=== PATIENT | female | born 1950 | race Caucasian/White ===

== ENCOUNTER 2016-06-19 20:32 | Inpatient (IN) | payer MEDICARE, MEDICAID ==
[~2016-06-19] VITALS: Ht 152.4 cm; Wt 92.6 kg
--- NOTE | ~2016-06-19 | EKG ---
[place], [place] ELECTROCARDIOGRAM REPORT NAME: MARY AL UNIT #: [id number] ROOM: 404 DOCTOR: POWER WRAY MD BIRTHDATE: [birth year] DOS: 06/22/2016 TIME: 21:16:21. RATE AND RHYTHM: Normal sinus rhythm at 77 beats per minute. OR interval 168 milliseconds, QRS duration 112 milliseconds, corrected QT interval 393 milliseconds, QRS axis is 264. IMPRESSION: 1. Normal sinus rhythm. 2. Low voltage in the precordial leads. 3. T-wave flattening noted in V4, V5, and T-wave changes noted in V1, V2 and also T-wave changes noted in I, aVL, rule out lateral ischemia. POWER WRAY MD CM:EKGRPT:ELECTROCARDIOGRAM REPORT [id number] POWER WRAY MD
--- NOTE | ~2016-06-19 | PR ---
[place], [place] PROGRESS NOTE [id number] UN[facility] #: [id number] ROOM: 404 DOCTOR: BLAINE NGUYEN MD BIRTHDATE: [birth year] DOS: 06/21/2016 SUBJECTIVE: The patient was seen at her bedside today, 06/21/2016, for followup of her presentation with syncope. She is a 65-year-old woman with a history of hypertension, hypothyroidism and a remote stroke who had syncope prompting her current admission. She had a short prodrome of dizziness and then fell. She denied any shortness of breath, palpitations or chest pain prior to falling. Since she has been in the hospital, orthostatic vital signs have been normal and she has not had any significant arrhythmias on the monitor. Serial cardiac biomarkers were normal. An echocardiogram was technically difficult, but did show normal left ventricular function and no significant valve abnormalities. PHYSICAL EXAMINATION: VITAL SIGNS: Today, her pulse is 73 and regular, blood pressure is 123/73. She is afebrile. She weighs 92.6 kg with a body mass index of 39.9. HEENT: Normocephalic, atraumatic. Extraocular muscles are intact. Sclerae are clear. Pupils are round and react to light. The oral mucosa is moist. Tongue is midline. NECK: Supple. She has no jugular distention. Carotids are full without bruits. She has no neck or supraclavicular masses, no thyromegaly. LUNGS: Respirations are unlabored. Her chest is clear to auscultation and percussion. HEART: Has a regular rhythm with a soft S4 gallop, but no S3 or significant murmur. The PMI is not displaced. ABDOMEN: Obese, but otherwise benign. EXTREMITIES: Showed no edema. IMPRESSION: 1. Syncope. This was a somewhat atypical episodes since the patient apparently was unconscious for quite some time. This makes a vasovagal or arrhythmic event less likely. 2. Type 2 diabetes mellitus. 3. Familial tremor. 4. Hypothyroidism. 5. Essential hypertension. PLAN: No other cardiac workup is planned at this time. If symptoms persist, then further evaluation with extended monitoring, tilt-table testing, etc., would be appropriate. We will continue to observe her with her primary physicians and we thank Dr. Keys for asking our advice regarding her care. [place], [place] PROGRESS NOTE NAME: MARY AL UNIT #: [id number] ROOM: 404 DOCTOR: BLAINE NGUYEN MD BIRTHDATE: [birth year] BLAINE NGUYEN MD CM:PNTRANS 1753 1800 BLAINE NGUYEN MD 06/22/16 1800 interface
--- NOTE | ~2016-06-19 | CON ---
[place], [place] REPORT OF CONSULTATION NAME: MARY AL UNIT #: [id number] ROOM: 404 DOCTOR: PÉREZ RAMOS ED.D (PRESTON) BIRTHDATE: [birth year] DOS: 06/21/2016 HISTORY OF PRESENT ILLNESS: The patient is a 65-year-old female referred by Dr. Wray for psychological evaluation regarding her anxiety and depression. At the present time, this patient is on the 4th floor at [facility]. The patient is , and has one daughter and one stepdaughter and several grandchildren. Her was present during part of the interview. 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 Her family physician is Dr. Wray, and her medical history is pertinent for syncope, anxiety, benign essential tremor, chronic kidney disease, GERD, hypothyroidism, hypertension, PTSD, and major depressive disorder. Her medications include Klonopin, gabapentin, Synthroid, Prilosec, Paxil, and Risperdal. She was treated on the Inpatient Behavioral Health Unit here at [facility]. She denies any significant substance abuse issues, although she does have a history of alcohol abuse and a long family history of alcohol abuse. She has not had anything to drink for many years. This patient was awake, alert, and oriented in all 3 spheres, but was quite depressed. She denies any suicidal ideation or homicidal thoughts, and does not appear to have any active hallucinations. She did follow with Dr. Levi here in [place], and was treated by Beto Welch at the counseling center here in [place] [facility] at one time. I did refer her to the [facility] here in [place] for outpatient counseling, but she did not followup and I strongly suggested she follow up in the immediate future. She worries about running up bills and I explained that she would probably not have any co-pay if she went to the [facility] office. She states that she suffers from PTSD due to the fact that her family had a long history of alcoholism and aggressive behavior. DIAGNOSES: 1. Major depressive disorder, recurrent. 2. Posttraumatic stress disorder. RECOMMENDATIONS: 1. The patient should continue her psychotropic medications as prescribed by Dr. Wray. 2. The patient should follow up at [facility] for outpatient counseling. Thank you very much for this consult. [place], [place] REPORT OF CONSULTATION NAME: MARY AL UNIT #: [id number] ROOM: 404 DOCTOR: PÉREZ RAMOS ED.D (PRESTON) BIRTHDATE: [birth year] PÉREZ RAMOS ED.D CM:CONSTR:REPORT OF CONSULTATION 1040 06/22/16 0135 interface POWER WRAY MD
[2016-06-19 20:32] VITALS: BP 145/51
[~2016-06-19 20:32] MED LIST: AMOXIL500 MG PO; ASPI-COR81 M1 PO; ASPIRIN ENTERIC81 M1 PO; ASPIRIN81 MG PO; BACTRIM DS 8001 TA1 PO; BRIN20TA PO; CLINDAMYCIN HC300 MG PO; CLONAZEPAM1 MG PO; CLONAZEPAM2 MG PO; CRESTOR10 M1 PO; DIABETIC; EC NAPROSYN500 MG PO; GABAPENTIN400 MG PO; HYDROCODONE BIT1 T11 PO; INVOKANA PO; KLONOPIN0.5 MG PO; LEVEMIR10 ML SC; LEVEMIR100 U/ML SC; LEVOTHYROXIN0.125 MG PO; LEVOTHYROXINE0.1 M1 PO; LOMOTIL 0.025 M1 TA1 PO; MELOXICAM1 POW; MELOXICAM15 MG PO; MICONAZOLE2% T; MIRTAZAPINE15 M2 PO; Mysoline50 MG PO; NORCO 325 MG-51 TAB PO; PAROXETINE10 MG PO; PAROXETINE20 MG PO; PAXIL20 M1 PO; PRAVASTATIN SOD20 MG PO; PREDNICOT20 MG PO; PRESERVISION1 SGL PO; PRILOSEC20 MG PO; RISPERDAL0.25 MG PO; RISPERDAL2 M1 PO; SODIUM POL; SYNTHROID,LEV150 MCG PO; Synthroid,Levo75 MCG PO; TRAMADOL50 MG PO; TYLENOL W/CODEI1 TA2 PO; TYLENOL500 MG PO; VICODIN 5/500 505 MG; VICODIN 5/500 505 MG PO; VICTOZA6 MG/ML SC; WELCHOL625 MG PO; ZOFRAN ODT4 MG SL; Zofran4 MG PO
[2016-06-19] MEDS ORDERED: KLONOPIN2 M1 PO (20:39)
[2016-06-19 21:13] LABS: BASO # 0.1 10*3/uL (0.0-0.1); BASO % 0.7 % (0.0-1.0); EOS # 0.2 10*3/uL (0.0-0.4); EOS % 2.3 % (1.0-4.0); HEMATOCRIT 44.5 % (37.0-47.0); HEMOGLOBIN 14.8 g/dl (12.0-16.0); LYMPH # 2.5 10*3/uL (1.3-4.4); LYMPH % 28.8 % (27.0-41.0); MEAN CELL VOLUME 89.2 fl (81.0-99.0); MEAN CORPUSCULAR HGB 29.7 pg (27.0-31.0); MEAN CORPUSCULAR HGB CONC 33.3 g/dl (33.0-37.0); MEAN PLATELET VOLUME 10.9 fl (9.6-12.3); MONO # 0.5 10*3/uL (0.1-1.0); NEUT # 5.4 10*3/uL (2.3-7.9); PLATELET COUNT AUTOMATED 145 10*3/uL (130-400); RED BLOOD COUNT 4.99 10*6/uL (4.10-5.10); RED CELL DISTRI WIDTH 13.2 % (0-14.5); WHITE BLOOD COUNT 8.8 10*3/uL (4.8-10.8)
[2016-06-19 21:15] VITALS: BP 138/58
[2016-06-19 21:33] LABS: ALBUMIN 3.5 gm/dl (3.1-4.5); BILIRUBIN, TOTAL 0.6 mg/dl (0.2-1.0); POTASSIUM 3.9 mmol/L (3.5-5.1); TOTAL PROTEIN 7.3 gm/dL (6.4-8.2)
[2016-06-19 21:44] VITALS: BP 159/62
[2016-06-19 22:54] VITALS: BP 134/67
[2016-06-19 23:07] VITALS: BP 129/68
[2016-06-20 01:15] VITALS: BP 148/73
[2016-06-20 06:43] LABS: BASO # 0.1 10*3/uL (0.0-0.1); BASO % 0.7 % (0.0-1.0); EOS # 0.2 10*3/uL (0.0-0.4); EOS % 2.7 % (1.0-4.0); HEMATOCRIT 40.3 % (37.0-47.0); HEMOGLOBIN 13.5 g/dl (12.0-16.0); LYMPH # 2.5 10*3/uL (1.3-4.4); LYMPH % 29.9 % (27.0-41.0); MEAN CELL VOLUME 88.8 fl (81.0-99.0); MEAN CORPUSCULAR HGB 29.7 pg (27.0-31.0); MEAN CORPUSCULAR HGB CONC 33.5 g/dl (33.0-37.0); MEAN PLATELET VOLUME 11.2 fl (9.6-12.3); MONO # 0.6 10*3/uL (0.1-1.0); MONO % 7.3 % (3.0-9.0); PLATELET COUNT AUTOMATED 129 10*3/uL (130-400); RED BLOOD COUNT 4.54 10*6/uL (4.10-5.10); WHITE BLOOD COUNT 8.4 10*3/uL (4.8-10.8)
[2016-06-20 06:54] LABS: CPK 31 U/L (26-192)
[2016-06-20 06:56] LABS: CKMB < 0.5 ng/ml (0.5-3.6)
[2016-06-20 06:59] LABS: HEMOGLOBIN A1c 12.1 % (4.8-5.6)
[2016-06-20 07:28] LABS: FOLIC ACID 8.13 ng/mL (>5.38)
[2016-06-20 07:30] LABS: PROTHROMBIN TIME 10.8 SECONDS (9.0-12.4)
[2016-06-20 07:39] LABS: ALBUMIN 3.1 gm/dl (3.1-4.5); BILIRUBIN, TOTAL 0.6 mg/dl (0.2-1.0); POTASSIUM 3.7 mmol/L (3.5-5.1); TOTAL PROTEIN 6.2 gm/dL (6.4-8.2)
[2016-06-20 07:51] LABS: FREE T4 1.08 ng/dl (0.76-1.46); MAGNESIUM 1.9 mg/dL (1.5-2.1); THYROID STIM HORMONE (HS) 14.1 uIU/ml (0.358-4.75)
[2016-06-20 08:00] VITALS: BP 106/52
[2016-06-20] MEDS ORDERED: TOUJEO300 U/ML SC (09:18)
[2016-06-20] MEDS ORDERED: RISPERDAL0.5 MG PO (09:19)
[2016-06-20 12:00] VITALS: BP 122/86
[2016-06-20 12:21] LABS: CKMB 0.5 ng/ml (0.5-3.6)
[2016-06-20 16:00] VITALS: BP 126/67
[2016-06-20 18:43] LABS: CKMB 0.6 ng/ml (0.5-3.6)
[2016-06-20 20:00] VITALS: BP 144/86
[2016-06-21] VITALS: BP 143/68
[2016-06-21 08:00] VITALS: BP 150/80; BP 151/81
[2016-06-21 12:00] VITALS: BP 146/79
[2016-06-21 16:00] VITALS: BP 123/73
[2016-06-21 20:00] VITALS: BP 138/64
[2016-06-22] VITALS: BP 154/55
[2016-06-22 08:00] VITALS: BP 149/69
[2016-06-22 12:40] VITALS: BP 164/75
== END 2016-06-22 14:27 | disposition home or self-care (01) | DRG 69 ==
LOC: ED 20:32 → 4E 23:32 → EDHOLD 23:32 → 4E 23:47
PROVIDERS: Emergency Medicine Emergency Medical Services; Internal Medicine
DX: G45.9 Transient cerebral ischemic attack, unspecified (principal); N18.3 Chronic kidney disease, stage 3 (moderate); E11.39 Type 2 diabetes mellitus with other diabetic ophthalmic complication; F33.9 Major depressive disorder, recurrent, unspecified; R55 Syncope and collapse; I12.9 Hypertensive chronic kidney disease with stage 1 through stage 4 chronic kidney disease, or unspecified chronic kidney disease; F41.9 Anxiety disorder, unspecified; K21.9 Gastro-esophageal reflux disease without esophagitis; E03.9 Hypothyroidism, unspecified; H35.30 Unspecified macular degeneration; M79.89 Other specified soft tissue disorders; F43.10 Post-traumatic stress disorder, unspecified; G25.0 Essential tremor; Z87.442 Personal history of urinary calculi; Z86.73 Personal history of transient ischemic attack (TIA), and cerebral infarction without residual deficits; Z90.49 Acquired absence of other specified parts of digestive tract; Z90.710 Acquired absence of both cervix and uterus; Z98.890 Other specified postprocedural states; Z88.8 Allergy status to other drugs, medicaments and biological substances; Z91.041 Radiographic dye allergy status; Z79.4 Long term (current) use of insulin; Z79.899 Other long term (current) drug therapy; Z80.8 Family history of malignant neoplasm of other organs or systems; Z82.5 Family history of asthma and other chronic lower respiratory diseases; Z83.3 Family history of diabetes mellitus; Z81.1 Family history of alcohol abuse and dependence

== ENCOUNTER → 2016-09-09 | Outpatient (CLI) | payer MEDICARE, MEDICAID ==
[~2016-09-09] MED LIST changes: +KLONOPIN2 M1 PO; +RISPERDAL0.5 MG PO; +TOUJEO300 U/ML SC
== END | disposition home or self-care (01) ==
LOC: US 08:50
DX: N18.4 Chronic kidney disease, stage 4 (severe) (principal); R74.8 Abnormal levels of other serum enzymes; K76.0 Fatty (change of) liver, not elsewhere classified

== ENCOUNTER 2017-02-19 12:48 | Inpatient (IN) | payer MEDICARE, MEDICAID ==
[~2017-02-19] VITALS: Ht 152.5 cm; Wt 86.3 kg
[~2017-02-19 12:48] MED LIST changes: +TOUJEO SOL300 UNIT/1 SC; -TOUJEO300 U/ML SC
[2017-02-19 12:56] VITALS: BP 130/77
[2017-02-19 13:25] LABS: BILIRUBIN NEGATIVE (NEGATIVE); BLOOD NEGATIVE (NEGATIVE); CLARITY CLEAR (CLEAR); COLOR YELLOW (YELLOW); GLUCOSE 3+ (NEGATIVE); KETONE TRACE (NEGATIVE); LEUKO ESTERASE NEGATIVE (NEGATIVE); NITRITE NEGATIVE (NEGATIVE); SPECIFIC GRAVITY <= 1.005 (1.005-1.030); UROBILINOGEN 0.2 E.U./dl (0.2-1.0)
[2017-02-19 13:26] LABS: BASO # 0.1 10*3/uL (0.0-0.1); BASO % 0.4 % (0.0-1.0); EOS # 0.1 10*3/uL (0.0-0.4); EOS % 0.3 % (1.0-4.0); HEMATOCRIT 47.1 % (37.0-47.0); HEMOGLOBIN 15.3 g/dl (12.0-16.0); LYMPH # 1.7 10*3/uL (1.3-4.4); LYMPH % 11.8 % (27.0-41.0); MEAN CELL VOLUME 90.4 fl (81.0-99.0); MEAN CORPUSCULAR HGB 29.4 pg (27.0-31.0); MEAN CORPUSCULAR HGB CONC 32.5 g/dl (33.0-37.0); MEAN PLATELET VOLUME 10.9 fl (9.6-12.3); MONO # 0.5 10*3/uL (0.1-1.0); MONO % 3.4 % (3.0-9.0); NEUT # 12.3 10*3/uL (2.3-7.9); NEUT % 83.8 % (47.0-73.0); PLATELET COUNT AUTOMATED 158 10*3/uL (130-400); RED BLOOD COUNT 5.21 10*6/uL (4.10-5.10); RED CELL DISTRI WIDTH 13.6 % (0-14.5); WHITE BLOOD COUNT 14.7 10*3/uL (4.8-10.8)
--- NOTE | 2017-02-19 13:31 | NUR ---
WAS NOTIFIED BY LAB THAT LACTIC ACID 3.3 DR POWELL NOTIFIED.
[2017-02-19 13:35] LABS: ACT PARTIAL THROMBO TIME 25.9 SECONDS (20.8-31.5)
[2017-02-19 13:40] LABS: RBC 0-2 rbc/hpf (0-2); WBC 0-2 wbc/hpf (0-5)
[2017-02-19 13:42] LABS: ALBUMIN 3.8 gm/dl (3.1-4.5); ALKALINE PHOSPHATASE 121 U/L (45-117); BUN 19 mg/dl (7-24); CHLORIDE 103 mmol/L (98-107); CKMB 0.9 ng/ml (0.5-3.6); CPK 77 U/L (26-192); CREATININE 1.42 mg/dL (0.55-1.02); LIPASE 153 U/L (73-393); MAGNESIUM 2.2 mg/dL (1.5-2.1); POTASSIUM 4.9 mmol/L (3.5-5.1); SGOT/AST 19 IU/L (3-35); SGPT/ALT 22 U/L (12-78); SODIUM 140 mmol/L (136-145); TOTAL PROTEIN 8.4 gm/dL (6.4-8.2)
[2017-02-19 13:43] LABS: TROPONIN I < 0.015 ng/ml (<0.045)
--- NOTE | 2017-02-19 15:40 | NUR ---
LAB CALLED AND LACTIC ACID @ 2.2, DR. POWELL NOTIFED
--- NOTE | 2017-02-19 16:30 | NUR ---
Time: 1629 A 66 year old F admitted to 5E under services of DR. KAMALA IBRAHIM,POWER. Pt. arrived via stretcher from ER. Chief complaint: SYNCOPY, AND DIAPHORESIS . IAM KRAMER
[2017-02-19 16:37] VITALS: BP 142/56; BP 151/44
--- NOTE | 2017-02-19 17:19 | NUR ---
DR NGUYEN NOTIFIED OF CONSULT, NO NEW ORDERS.
[2017-02-19] MEDS ORDERED: TRULICITY0.75 MG/0. SC (18:09)
--- NOTE | 2017-02-19 18:09 | NUR ---
MED LIST VERIFIED WITH [facility] AND PT.
[2017-02-19] MEDS ORDERED: JARDIANCE10 MG PO (18:11)
--- NOTE | 2017-02-19 18:28 | NUR ---
PT GIVEN TYLENOL PRN FOR HEADACHE. WILL CONTINUE TO ASSESS.
[2017-02-19 20:00] VITALS: BP 132/57
[2017-02-20] VITALS: BP 122/56; BP 130/77
[2017-02-20 07:08] LABS: BASO # 0.1 10*3/uL (0.0-0.1); BASO % 0.6 % (0.0-1.0); EOS # 0.2 10*3/uL (0.0-0.4); EOS % 2.5 % (1.0-4.0); LYMPH # 2.8 10*3/uL (1.3-4.4); LYMPH % 34.2 % (27.0-41.0); MEAN CELL VOLUME 91.5 fl (81.0-99.0); MEAN CORPUSCULAR HGB CONC 32.7 g/dl (33.0-37.0); MEAN PLATELET VOLUME 10.9 fl (9.6-12.3); MONO # 0.6 10*3/uL (0.1-1.0); MONO % 6.7 % (3.0-9.0); NEUT # 4.6 10*3/uL (2.3-7.9); NEUT % 55.5 % (47.0-73.0); PLATELET COUNT AUTOMATED 125 10*3/uL (130-400); RED BLOOD COUNT 4.14 10*6/uL (4.10-5.10); RED CELL DISTRI WIDTH 13.8 % (0-14.5); WHITE BLOOD COUNT 8.3 10*3/uL (4.8-10.8)
[2017-02-20 07:15] LABS: HEMATOCRIT 37.9 % (37.0-47.0); HEMOGLOBIN 12.4 g/dl (12.0-16.0)
[2017-02-20 07:35] LABS: ALBUMIN 2.9 gm/dl (3.1-4.5); ALKALINE PHOSPHATASE 69 U/L (45-117); BUN 16 mg/dl (7-24); CHLORIDE 112 mmol/L (98-107); CHOLESTEROL 148 mg/dL (<200); CREATININE 1.03 mg/dL (0.55-1.02); HDL CHOLESTEROL 33 mg/dl (40-60); LDL CHOLESTEROL 77 mg/dL (9-159); MAGNESIUM 2.1 mg/dL (1.5-2.1); PHOSPHOROUS 3.6 mg/dL (2.5-4.9); SGOT/AST 17 IU/L (3-35); SGPT/ALT 16 U/L (12-78); TOTAL PROTEIN 6.4 gm/dL (6.4-8.2); TRIGLYCERIDES 188 mg/dl (<150); VLDL CHOLESTEROL 38 mg/dL (6-40)
[2017-02-20 07:39] LABS: FREE T4 1.16 ng/dl (0.76-1.46)
[2017-02-20 07:47] LABS: SODIUM 144 mmol/L (136-145)
[2017-02-20 07:49] LABS: POTASSIUM 3.8 mmol/L (3.5-5.1)
[2017-02-20 07:59] LABS: VITAMIN D, 25-HYDROXY 13.9 ng/mL (30-100)
[2017-02-20 08:00] VITALS: BP 114/67
--- NOTE | 2017-02-20 08:00 | NUR ---
PATIENT SITTING AT SIDE OF BED EATING BREAKFAST. STATES SHE FEELS "SO MUCH BETTER NOW THAT MY BLOOD SUGAR ISNT OUT OF WHACK" PLEASANT AND COOPERATIVE WITH CARE. NO SXS OF DISTRESS. CALL LIGHT IS IN REACH. FLUIDS MAINTAINED PER ORDER.
--- NOTE | 2017-02-20 09:00 | NUR ---
[employer] Former in to talk to patient. Patient states lives at home with . There are no steps in the home. Physician: jenna Pharmacy: [facility] health services: none Patient's level of ADLs: MINIMAL ASSIST Patient has working utilities: all working DME: cane, walker, scooter, shower chair Follow-up physician's appointment after d/c: will be made by hospitalist nurse director upon discharge Does patient want to access PORTAL?: no Discharge plan discussed with patient, patient lives at home with her , she states she gets around with ambulation devices, is independent in adls, patient states she will be going back home upon discharge and denies any home needs. RUBI MOON
[2017-02-20 12:00] VITALS: BP 112/84
--- NOTE | 2017-02-20 12:31 | NUR ---
PATIENT REQUESTED AND RECEIVED DULCOLAX FOR C/O OF CONSTIPATION.
--- NOTE | 2017-02-20 14:57 | NUR ---
PATIENT STATES EARLIER DULCOLAX "DID NOT HELP AT ALL." MEDICATED WITH PRN MOM ORDERED. WILL MONITOR. NO FURTHER COMPLAINTS AT THIS TIME.
--- NOTE | 2017-02-20 15:03 | NUR ---
PATIENT SITTING AT SIDE OF BED. NO COMPLAINTS AT THIS TIME. NO SXS OF DISTRESS AT THIS TIME. CALL LIGHT IN REACH
[2017-02-20 16:00] VITALS: BP 123/61
--- NOTE | 2017-02-20 17:18 | NUR ---
DR POWELL NOTIFIED OF NEGATIVE ORTHOS. NO FURTHER ORDERS AT THIS TIME.
--- NOTE | 2017-02-20 17:55 | NUR ---
PATIENT RESTING. NO VOICED COMPLAINTS AT THIS TIME. PATIENT PLEASANT/COOPERATIVE THROUGHOUT SHIFT. NO SXS OF DISTRESS. FLUIDS MAINTAINED PER ORDER. CALL LIGHT IN REACH.
[2017-02-20 20:00] VITALS: BP 134/55
--- NOTE | 2017-02-20 20:00 | NUR ---
IN BED AWAKE, ALERT AND ORIENTED X3, WATCHING TV, DENIES C/O. SEE ASSESS. NO S/S OF DISTRESS. WILL CONT TO MONITOR. CALL LIGHT IN REACH.
--- NOTE | 2017-02-20 20:02 | NUR ---
DR POWELL CALLED AND SAID HE SPOKE WITH DR WRAY AND DR WRAY WANTS SERVICES TRANSFERRED TO DR POWELL BECAUSE HE IS GOING OOT.
[2017-02-21] VITALS: BP 141/59
[2017-02-21 07:01] LABS: BASO # 0.1 10*3/uL (0.0-0.1); BASO % 0.6 % (0.0-1.0); EOS # 0.3 10*3/uL (0.0-0.4); EOS % 4.2 % (1.0-4.0); HEMATOCRIT 36.1 % (37.0-47.0); HEMOGLOBIN 11.7 g/dl (12.0-16.0); LYMPH # 3.5 10*3/uL (1.3-4.4); LYMPH % 45.3 % (27.0-41.0); MEAN CELL VOLUME 91.9 fl (81.0-99.0); MEAN CORPUSCULAR HGB 29.8 pg (27.0-31.0); MEAN CORPUSCULAR HGB CONC 32.4 g/dl (33.0-37.0); MEAN PLATELET VOLUME 11.5 fl (9.6-12.3); MONO # 0.6 10*3/uL (0.1-1.0); MONO % 8.2 % (3.0-9.0); NEUT # 3.2 10*3/uL (2.3-7.9); NEUT % 41.4 % (47.0-73.0); PLATELET COUNT AUTOMATED 130 10*3/uL (130-400); RED BLOOD COUNT 3.93 10*6/uL (4.10-5.10); RED CELL DISTRI WIDTH 13.8 % (0-14.5); WHITE BLOOD COUNT 7.8 10*3/uL (4.8-10.8)
[2017-02-21 07:36] LABS: ALBUMIN 2.7 gm/dl (3.1-4.5); BUN 15 mg/dl (7-24); CHLORIDE 111 mmol/L (98-107); MAGNESIUM 2.2 mg/dL (1.5-2.1); POTASSIUM 3.9 mmol/L (3.5-5.1); SODIUM 143 mmol/L (136-145)
[2017-02-21 07:38] LABS: ALKALINE PHOSPHATASE 61 U/L (45-117); CREATININE 0.93 mg/dL (0.55-1.02); SGOT/AST 17 IU/L (3-35); SGPT/ALT 16 U/L (12-78)
[2017-02-21 07:59] VITALS: BP 128/59
[2017-02-21 12:30] VITALS: BP 98/79
--- NOTE | 2017-02-21 13:52 | NUR ---
Discharge instructions reviewed with patient/family. Patient receptive and verbalizes understanding. Follow-up care arranged. Written instructions given to patient/family. SOFIA MURPHY
== END 2017-02-21 13:55 | disposition home or self-care (01) | DRG 637 ==
LOC: ED 12:48 → 5E 15:48 → EDHOLD 15:48 → 5E 15:56
PROVIDERS: Internal Medicine; ADMIT Emergency Medicine
DX: E11.65 Type 2 diabetes mellitus with hyperglycemia (principal); N17.0 Acute kidney failure with tubular necrosis; E44.0 Moderate protein-calorie malnutrition; R65.10 Systemic inflammatory response syndrome (SIRS) of non-infectious origin without acute organ dysfunction; E87.8 Other disorders of electrolyte and fluid balance, not elsewhere classified; E11.22 Type 2 diabetes mellitus with diabetic chronic kidney disease; D69.6 Thrombocytopenia, unspecified; I95.1 Orthostatic hypotension; N18.3 Chronic kidney disease, stage 3 (moderate); E86.0 Dehydration; R81 Glycosuria; E83.41 Hypermagnesemia; F43.10 Post-traumatic stress disorder, unspecified; I12.9 Hypertensive chronic kidney disease with stage 1 through stage 4 chronic kidney disease, or unspecified chronic kidney disease; G25.0 Essential tremor; K21.9 Gastro-esophageal reflux disease without esophagitis; E66.01 Morbid (severe) obesity due to excess calories; H35.30 Unspecified macular degeneration; E03.9 Hypothyroidism, unspecified; F41.9 Anxiety disorder, unspecified; E55.9 Vitamin D deficiency, unspecified; E53.8 Deficiency of other specified B group vitamins; Z68.34 Body mass index [BMI] 34.0-34.9, adult; Z86.73 Personal history of transient ischemic attack (TIA), and cerebral infarction without residual deficits; Z87.442 Personal history of urinary calculi; Z90.49 Acquired absence of other specified parts of digestive tract; Z90.710 Acquired absence of both cervix and uterus; Z81.1 Family history of alcohol abuse and dependence; Z80.9 Family history of malignant neoplasm, unspecified; Z83.3 Family history of diabetes mellitus; Z91.041 Radiographic dye allergy status; Z79.4 Long term (current) use of insulin; Z79.899 Other long term (current) drug therapy

== ENCOUNTER → 2017-07-15 | Outpatient (CLI) | payer MEDICARE, MEDICAID ==
[~2017-07-15] MED LIST changes: +JARDIANCE10 MG PO; +TRULICITY0.75 MG/0. SC
== END | disposition home or self-care (01) ==
LOC: LAB 13:13 → US 14:00
DX: N18.3 Chronic kidney disease, stage 3 (moderate) (principal)

== ENCOUNTER → 2017-10-27 | Outpatient (CLI) | payer MEDICARE, MEDICAID | END | disposition home or self-care (01) | LOC: CARD 10-06 16:00 | DX: I51.7 Cardiomegaly (principal); R94.31 Abnormal electrocardiogram [ECG] [EKG] ==

== ENCOUNTER → 2019-02-16 | Outpatient (CLI) | payer MEDICARE, MEDICAID | END | disposition home or self-care (01) | LOC: RAD 13:59 | DX: M85.672 Other cyst of bone, left ankle and foot (principal) ==

== ENCOUNTER → 2019-03-11 | Outpatient (CLI) | payer MEDICARE, MEDICAID | END | disposition home or self-care (01) | LOC: MRI 13:00 | DX: M67.472 Ganglion, left ankle and foot (principal) ==

== ENCOUNTER 2019-04-02 12:34 | Emergency (ER) | payer MEDICARE, MEDICAID ==
[~2019-04-02] VITALS: Ht 157.4 cm; Wt 82.6 kg
[2019-04-02 12:35] VITALS: BP 135/58
[2019-04-02] MEDS ORDERED: TESSALON PERLE100 M1 PO (13:21)
[2019-04-02] MEDS ORDERED: PREDNISONE50 MG PO (13:21)
== END 2019-04-02 13:45 | disposition home or self-care (01) ==
LOC: ED 12:34
DX: J20.9 Acute bronchitis, unspecified (principal); Z90.49 Acquired absence of other specified parts of digestive tract; Z90.710 Acquired absence of both cervix and uterus; Z79.899 Other long term (current) drug therapy; Z79.4 Long term (current) use of insulin; Z91.041 Radiographic dye allergy status

== ENCOUNTER → 2019-04-20 | Outpatient (CLI) | payer MEDICARE, MEDICAID ==
[~2019-04-20] MED LIST changes: +PREDNISONE50 MG PO; +TESSALON PERLE100 M1 PO
== END | disposition home or self-care (01) ==
LOC: ORTHO 01:12
DX: S92.352D Displaced fracture of fifth metatarsal bone, left foot, subsequent encounter for fracture with routine healing (principal); X58.XXXD Exposure to other specified factors, subsequent encounter

== ENCOUNTER → 2019-04-26 | Outpatient (CLI) | payer MEDICARE, MEDICAID | END | disposition home or self-care (01) | LOC: RAD 13:03 | DX: S92.352D Displaced fracture of fifth metatarsal bone, left foot, subsequent encounter for fracture with routine healing (principal); N95.9 Unspecified menopausal and perimenopausal disorder; Z78.0 Asymptomatic menopausal state; Z90.710 Acquired absence of both cervix and uterus; X58.XXXD Exposure to other specified factors, subsequent encounter ==

== ENCOUNTER → 2019-05-18 | Outpatient (CLI) | payer MEDICARE, MEDICAID | END | disposition home or self-care (01) | LOC: ORTHO 01:05 | DX: S92.352D Displaced fracture of fifth metatarsal bone, left foot, subsequent encounter for fracture with routine healing (principal); X58.XXXD Exposure to other specified factors, subsequent encounter ==

== ENCOUNTER 2019-12-11 19:38 | Emergency (ER) | payer MEDICARE, MEDICAID ==
[~2019-12-11] VITALS: Ht 157.4 cm; Wt 82.6 kg
[2019-12-11 19:57] VITALS: BP 151/52
== END 2019-12-11 23:43 | disposition home or self-care (01) ==
LOC: ED 19:38
DX: S62.396A Other fracture of fifth metacarpal bone, right hand, initial encounter for closed fracture (principal); S09.90XA Unspecified injury of head, initial encounter; M25.551 Pain in right hip; M25.562 Pain in left knee; K21.9 Gastro-esophageal reflux disease without esophagitis; I12.9 Hypertensive chronic kidney disease with stage 1 through stage 4 chronic kidney disease, or unspecified chronic kidney disease; E11.22 Type 2 diabetes mellitus with diabetic chronic kidney disease; N18.3 Chronic kidney disease, stage 3 (moderate); E66.01 Morbid (severe) obesity due to excess calories; E03.9 Hypothyroidism, unspecified; Z91.041 Radiographic dye allergy status; Z79.899 Other long term (current) drug therapy; Z79.4 Long term (current) use of insulin; Z86.73 Personal history of transient ischemic attack (TIA), and cerebral infarction without residual deficits; Z87.442 Personal history of urinary calculi; W18.39XA Other fall on same level, initial encounter; Y93.89 Activity, other specified; Y92.098 Other place in other non-institutional residence as the place of occurrence of the external cause; Y99.8 Other external cause status

== ENCOUNTER → 2020-01-13 | Outpatient (CLI) | payer MEDICARE, OTHER ==
[~2020-01-13] MED LIST changes: +NEURONTIN600 MG PO; +VENLAFAXINE150 MG PO; +VITAMIN D350 MC2 PO
[2020-01-13 12:18] LABS: CREATININE 1.32 mg/dL (0.55-1.02); POTASSIUM 4.4 mmol/L (3.5-5.1)
== END | disposition home or self-care (01) ==
LOC: LAB 11:26
PROVIDERS: Internal Medicine
DX: E11.65 Type 2 diabetes mellitus with hyperglycemia (principal)

== ENCOUNTER 2020-01-14 19:00 | Inpatient (IN) | payer MEDICARE, OTHER ==
[~2020-01-14] VITALS: Ht 157.4 cm; Wt 93.6 kg
[~2020-01-14 19:00] MED LIST changes: -NEURONTIN600 MG PO; +PRILOSEC20 M1 PO; -PRILOSEC20 MG PO; -VENLAFAXINE150 MG PO; -VITAMIN D350 MC2 PO
[2020-01-14 19:05] VITALS: BP 107/50
[2020-01-14 19:39] LABS: BASO % 0.5 % (0.0-1.0); EOS # 0.1 10*3/uL (0.0-0.4); EOS % 1.5 % (1.0-4.0); HEMATOCRIT 38.8 % (37.0-47.0); LYMPH # 2.8 10*3/uL (1.3-4.4); LYMPH % 33.4 % (27.0-41.0); MEAN CORPUSCULAR HGB 29.7 pg (27.0-31.0); MEAN CORPUSCULAR HGB CONC 33.8 g/dl (33.0-37.0); MEAN PLATELET VOLUME 11.5 fl (9.6-12.3); MONO # 0.7 10*3/uL (0.1-1.0); MONO % 8.3 % (3.0-9.0); NEUT # 4.8 10*3/uL (2.3-7.9); NEUT % 56.1 % (47.0-73.0); PLATELET COUNT AUTOMATED 151 10*3/uL (130-400); RED BLOOD COUNT 4.41 10*6/uL (4.10-5.10); RED CELL DISTRI WIDTH 13.6 % (0-14.5); WHITE BLOOD COUNT 8.5 10*3/uL (4.8-10.8)
--- NOTE | 2020-01-14 19:45 | NUR ---
pt positioned for comfort with safety precautions intact and call light within reach.
[2020-01-14 19:50] LABS: ACT PARTIAL THROMBO TIME 25.3 SECONDS (20.0-32.1)
[2020-01-14 19:56] LABS: ALBUMIN 3.2 gm/dl (3.1-4.5); BUN 26 mg/dl (7-24)
--- NOTE | 2020-01-14 20:16 | NUR ---
PT TO CT, CONDITION STABLE.
[2020-01-14 20:54] LABS: ALKALINE PHOSPHATASE 135 U/L (45-117); CHLORIDE 104 mmol/L (98-107); CREATININE 1.62 mg/dL (0.55-1.02); POTASSIUM 4.2 mmol/L (3.5-5.1); SGOT/AST 17 IU/L (3-35); SGPT/ALT 27 U/L (12-78); SODIUM 135 mmol/L (136-145); TOTAL PROTEIN 6.8 gm/dL (6.4-8.2)
[2020-01-14 20:56] LABS: TROPONIN I < 0.015 ng/ml (<0.045)
[2020-01-14 21:00] VITALS: BP 112/60
--- NOTE | 2020-01-14 21:10 | NUR ---
C/O L WRIST PAIN. DENIES NEED FOR PAIN MEDICATION OR ICE PACK. . REQUESTED A DRINK OF WATER, AWAITING CT AND XRAY RESULTS. RESP EASY AND NONLABORED ON ROOM AIR. CALL LIGHT IN REACH. TELE MONITOR INTACT. 84P, 20R, 95%RA.
--- NOTE | 2020-01-14 21:32 | NUR ---
ASSISTED PT UP TO BSC. VOIDED CLEAR YELLOW URINE. DENIES DYSURIA. URINE SPECIMEN OBTAINED. ASSISTED PT BACK TO BED. REPOSITIONED FOR COMFORT. IVF INFUSING PER DRS ORDERS. CALL LIGHT IN REACH. ASSISTED PT TO USE HAND CANDY POLISHER. PT PLEASANT AND COOPERATIVE WITH CARE. RESP EASY AND NONLABORED ON ROOM AIR.
[2020-01-14 21:43] LABS: BILIRUBIN NEGATIVE (NEGATIVE); BLOOD NEGATIVE (NEGATIVE); CLARITY CLEAR (CLEAR); COLOR YELLOW (YELLOW); GLUCOSE 2+ (NEGATIVE); KETONE NEGATIVE (NEGATIVE); NITRITE NEGATIVE (NEGATIVE); PH 5.5 (5.0-9.0); UROBILINOGEN 0.2 E.U./dl (0.2-1.0)
[2020-01-14 21:44] LABS: LEUKO ESTERASE NEGATIVE (NEGATIVE)
--- NOTE | 2020-01-14 21:47 | NUR ---
UPDATED PATIENTS WHO IS AT HOME.
[2020-01-14 21:49] LABS: BACTERIA 1+; RBC 0-2 rbc/hpf (0-2); WBC 0-2 wbc/hpf (0-5)
[2020-01-14 21:50] LABS: YEAST 1+
--- NOTE | 2020-01-14 21:52 | NUR ---
REASSURED PT THAT AND FRIEND WENT HOME AND THAT I GAVE THEM AN UPDATE. AWAITING CT RESULTS.
--- NOTE | 2020-01-14 21:58 | NUR ---
UPDATED DAUGHTER IN [place]. PT GAVE VERBAL CONSENT FOR UPDATE.
[2020-01-14 22:29] VITALS: BP 138/57
[2020-01-14 23:03] VITALS: BP 118/67
[2020-01-14 23:15] VITALS: BP 150/61
--- NOTE | 2020-01-14 23:15 | NUR ---
The assessment has been completed. BRI PIMENTEL Time: 2314 A 69 year old FEMALE admitted to 4E under services of DR. KAMALA IBRAHIM,[facility] Pt. arrived via ambulance from ER. Chief complaint: ARRIVED TO ED VIA LT MEGHA FROM [facility] [employer] [employer]. REPORTS DIZZINESS THEN FALL. LOC. C/O L SHOULDER. L WRIST. RIGHT KNEE PAIN. . BRI PIMENTEL PT STATES SHE DOES NOT KNOW WHAT MEDICATIONS SHE TAKES AT HOME. WILL PASS ALONG FOR DAYTIME NURSE TO CALL PHARMACY.
--- NOTE | 2020-01-15 06:52 | NUR ---
ATTTEMPING TO CALL DR WRAY REGARDING ADMISSION
--- NOTE | 2020-01-15 07:00 | NUR ---
SPOKE W DR WRAY REGARDING ADMIT ORDERS. VERBAILIZED AND REPEATED BACK.
[2020-01-15] MEDS ORDERED: VENLAFAXINE150 MG PO (10:06)
[2020-01-15] MEDS ORDERED: NEURONTIN600 MG PO (10:08)
[2020-01-15] MEDS ORDERED: VITAMIN D350 MC2 PO (10:09)
[2020-01-15 12:00] VITALS: BP 160/68
[2020-01-15 16:00] VITALS: BP 157/65
--- NOTE | 2020-01-15 16:18 | NUR ---
ONE TIME DILAUDID DOSE APPEARS EFFECTIVE. PT SOUNDLY SLEEPING.
[2020-01-15 20:00] VITALS: BP 143/80
[2020-01-15 20:56] LABS: URINE CREATININE RANDOM 85.2 mg/dL
[2020-01-16] VITALS: BP 136/83
[2020-01-16 06:36] LABS: BASO % 0.6 % (0.0-1.0); EOS # 0.3 10*3/uL (0.0-0.4); EOS % 4.7 % (1.0-4.0); HEMATOCRIT 38.9 % (37.0-47.0); LYMPH # 2.5 10*3/uL (1.3-4.4); LYMPH % 35.6 % (27.0-41.0); MEAN CORPUSCULAR HGB 28.7 pg (27.0-31.0); MEAN CORPUSCULAR HGB CONC 31.9 g/dl (33.0-37.0); MEAN PLATELET VOLUME 11.5 fl (9.6-12.3); MONO # 0.7 10*3/uL (0.1-1.0); MONO % 9.2 % (3.0-9.0); NEUT # 3.5 10*3/uL (2.3-7.9); NEUT % 49.6 % (47.0-73.0); PLATELET COUNT AUTOMATED 136 10*3/uL (130-400); RED BLOOD COUNT 4.32 10*6/uL (4.10-5.10); RED CELL DISTRI WIDTH 13.8 % (0-14.5); WHITE BLOOD COUNT 7.1 10*3/uL (4.8-10.8)
[2020-01-16 06:50] LABS: CHOLESTEROL 257 mg/dL (<200); HDL CHOLESTEROL 32 mg/dl (40-60); TRIGLYCERIDES 464 mg/dl (<150)
[2020-01-16 06:53] LABS: ALBUMIN 2.9 gm/dl (3.1-4.5); BUN 21 mg/dl (7-24); CHLORIDE 110 mmol/L (98-107); CREATININE 1.04 mg/dL (0.55-1.02); POTASSIUM 4.1 mmol/L (3.5-5.1); SGOT/AST 17 IU/L (3-35); SGPT/ALT 22 U/L (12-78); SODIUM 139 mmol/L (136-145); TOTAL PROTEIN 6.6 gm/dL (6.4-8.2)
[2020-01-16 06:54] LABS: ALKALINE PHOSPHATASE 102 U/L (45-117)
[2020-01-16 08:00] VITALS: BP 122/72
--- NOTE | 2020-01-16 08:00 | NUR ---
Patient resting quietly with no c/o discomfort. Respirations easy and regular. Vital signs stable. No overt distress. NIKO JOHNSTON
--- NOTE | 2020-01-16 09:14 | NUR ---
MEDICATED WITH IV ATIVAN ORDERED PRIOR TO MRI D/T ANXIETY/CLAUSTROPHOBIA.
--- NOTE | 2020-01-16 10:52 | NUR ---
PHYSICAL THERAPY Physical Therapy evaluation completed on 4E with full evaluation to follow. Low complexity PT evaluation per chart review and evaluation, [id number]. Recommend physical therapy per plan of care and SNF upon discharge. Thank you for this referral. Dana Herrera,PT,DPT
--- NOTE | 2020-01-16 11:00 | NUR ---
PT JUST RETURNED FROM RADIOLOGY, MEDICATION EFFECTIVE FOR ANXIETY.
[2020-01-16 12:00] VITALS: BP 123/69; BP 154/58
--- NOTE | 2020-01-16 15:31 | NUR ---
Receiving Teller in to talk to patient. Patient states lives at home with her in a mobile trailer. There are 0 steps in the home. Physician: Dr. Artie Keys Pharmacy: [facility]: wants [facility] on discharge as she has had them in the past Patient's level of ADLs: MINIMAL ASSIST Patient has working utilities: yes DME: cane, walker Follow-up physician's appointment after d/c: she prefers to make her own follow up appt after discharge Does patient want to access PORTAL?: no Discharge plan discussed with patient. She lives at home with her . She states she is normally independent in her ADLs and has a cane and a walker at home that she has not used in the past but may start using now. Discussed short term SNF and she declines. Discussed home health care services and she is agreeable. When provided with a list of agencies she chose [facility] as she has had them in the past. She states she may go to the 3rd floor before she goes home for her nerves and mental status. She states her will provide transportation on discharge. ANAYA PERSON
--- NOTE | 2020-01-16 15:42 | NUR ---
IV TO rh LEAKING AT SITE. DC'D RE-START TO RA
[2020-01-16 16:00] VITALS: BP 172/66
[2020-01-16 20:00] VITALS: BP 155/86
--- NOTE | 2020-01-16 21:40 | NUR ---
NOEL TOLD THIS NURSE THAT SOMEONE CAME IN TO TALK TO HER TODAY ABOUT GOING TO THE 3RD FLOOR AND SHE BELIEVES SHE NEEDS TO GO TO GET HER MEDS STRAIGHTENED OUT BECAUSE SHE HAS BAD MOOD SWINGS AND CRIES ALL THE TIME AND WANTS TO GET STRAIGHTENED OUT. WILL CONTINUE TO MONITOR.
[2020-01-17] VITALS: BP 146/46
--- NOTE | 2020-01-17 03:45 | NUR ---
PATIENT MEDICATED WITH NORCO FOR COMPLAINTS OF RIB PAIN. WILL MONITOR FOR EFFECTIVENESS.
--- NOTE | 2020-01-17 04:20 | NUR ---
NORCO EFFECTIVE. PATIENT IN BED SLEEPING AT THIS TIME.
[2020-01-17 06:43] LABS: BASO % 0.6 % (0.0-1.0); EOS # 0.3 10*3/uL (0.0-0.4); EOS % 4.4 % (1.0-4.0); HEMATOCRIT 40.5 % (37.0-47.0); LYMPH # 2.7 10*3/uL (1.3-4.4); LYMPH % 37.6 % (27.0-41.0); MEAN CELL VOLUME 90.2 fl (81.0-99.0); MEAN CORPUSCULAR HGB CONC 32.1 g/dl (33.0-37.0); MEAN PLATELET VOLUME 10.8 fl (9.6-12.3); MONO # 0.8 10*3/uL (0.1-1.0); MONO % 10.3 % (3.0-9.0); NEUT # 3.4 10*3/uL (2.3-7.9); NEUT % 46.4 % (47.0-73.0); PLATELET COUNT AUTOMATED 131 10*3/uL (130-400); RED BLOOD COUNT 4.49 10*6/uL (4.10-5.10); RED CELL DISTRI WIDTH 13.9 % (0-14.5); WHITE BLOOD COUNT 7.3 10*3/uL (4.8-10.8)
[2020-01-17 07:20] LABS: CHLORIDE 110 mmol/L (98-107); POTASSIUM 4.1 mmol/L (3.5-5.1); SODIUM 140 mmol/L (136-145)
[2020-01-17 07:22] LABS: BUN 17 mg/dl (7-24); CREATININE 0.93 mg/dL (0.55-1.02)
[2020-01-17 08:00] VITALS: BP 138/72
--- NOTE | 2020-01-17 09:00 | NUR ---
Manager Multicultural in to see patient. No new needs or request at this time. Discharge plan home with [facility] vs [facility].
[2020-01-17 12:00] VITALS: BP 152/74
--- NOTE | 2020-01-17 13:45 | NUR ---
Discussed discharge planning with Dr. Keys. Patient to go to [facility]. Awaiting discharge instructions.
--- NOTE | 2020-01-17 13:50 | NUR ---
PHYSICAL THERAPY Patient was eating a late lunch this pm when approached for therapy and will check back with patient as able. Maximino Dill, SHOE SALESMAN
--- NOTE | 2020-01-17 14:26 | NUR ---
PHYSICAL THERAPY Patient was out of her room for x-ray this pm when approached for therapy. Will continue per POC as able. Maximino Dill, TOOL CRIB MANAGER
--- NOTE | 2020-01-17 14:49 | NUR ---
NORCO 5/325 GIVEN PER PATIENT REQUEST FOR LEFT SHOULDER PAIN.
--- NOTE | 2020-01-17 15:45 | NUR ---
PATIENT RESTING COMFORTABLY IN BED. NO SIGNS OF PAIN. NORCO EFFECTIVE.
[2020-01-17 16:00] VITALS: BP 155/62
[2020-01-17] MEDS ORDERED: GABAPENTIN100 M2 PO (16:39)
[2020-01-17] MEDS ORDERED: VENLAFAXINE HYD75 M3 PO (16:39)
[2020-01-17] MEDS ORDERED: MIRTAZAPINE15 M2 PO (16:39)
[2020-01-17] MEDS ORDERED: VITAMIN D350 MC2 PO (16:39)
[2020-01-17] MEDS ORDERED: Mysoline50 MG PO (16:39)
[2020-01-17] MEDS ORDERED: MOBIC15 MG PO (16:41)
--- NOTE | 2020-01-17 19:40 | NUR ---
CALLED [facility] TO SEE IF THEY HAD A BED FOR PATIENT. THEY STATED THEY KNEW NOTHING ABOUT THE PATIENT AND NEEDED A REFERRAL SO THERE WAS NO WAY THEY COULD TAKE HER TONIGHT. NOTIFIED DR. MCGILL ABOUT WHAT SHE SAID. HE STATED HER WOULD CALL [facility].
--- NOTE | 2020-01-17 19:45 | NUR ---
DR. KABA CALLED BACK AND SAID SHE NEEDED A [facility] CONSULT BEFORE SHE COULD GO OVER THERE SO SHE WILL REMAIN ON 4E FOR THE NIGHT AND BE DISCHARGED TOMORROW AFTER HER CONSULT.
[2020-01-17 20:00] VITALS: BP 152/76
--- NOTE | 2020-01-17 22:01 | NUR ---
PATIENT MEDICATED WITH NORCO FOR COMPLAINTS OF SHOULDER PAIN. WILL MONITOR FOR EFFECTIVENESS.
--- NOTE | 2020-01-17 23:00 | NUR ---
NORCO EFFECTIVE. RESTING IN BED WITH EYES CLOSED AT THIS TIME. NO SIGNS OR SYMPTOMS OF DISTRESS NOTED.
[2020-01-18] VITALS: BP 168/78
[2020-01-18 08:00] VITALS: BP 178/65
--- NOTE | 2020-01-18 10:50 | NUR ---
PHYSICAL THERAPY Patient seen this am 1:1 for therapy visit and was resting supine in bed upon therapist arrival. Patient identified by name / and presented with continuous IV treatment, voicing no new c/o's at this time. Patient transfers supine to sit EOB with MIN A, needing a minute or so to collect herself, then completed sit to stand transfer CGA x 1. Patient ambulates with use of wh walker, CGA, 45'x 1, demonstrating slow, cautious gait pattern, decreased stride and increased fatigue. Patient was also a little unsteady during 180 degree turn around while returning to supine in bed. Patient remained in bed with call light, tray table, telephone and bed alarm for safety. Will continue per POC as tolerated, total treatment time 14 minutes. Maximino Dill, THEATRICAL AGENT
--- NOTE | 2020-01-18 11:00 | NUR ---
Discussed discharge planning with Dr. Keys. Plan is to discharge the patient to [facility] today.
[2020-01-18 12:00] VITALS: BP 158/70
--- NOTE | 2020-01-18 13:59 | NUR ---
Discharge instructions reviewed with patient/family. Patient receptive and verbalizes understanding. Follow-up care arranged. Written instructions given to patient/family, REPORT GIVEN TO WILFREDO RN IN [facility], REMOVED IV, TELEMETRY ACCOUNTED FOR. WILFREDO TO FLOOR TO TAKE PATIENT LEFT VIA W/C MULUGETA BORGES
--- NOTE | 2020-01-19 10:00 | NUR ---
PHYSICAL THERAPY CO-SIGN I approve of the Physical Therapy notes written above. ANAYA CRUZ PT, DPT
== END 2020-01-18 14:51 | disposition home health service (06) | DRG 70 ==
LOC: ED 19:00 → 4E 22:15 → EDHOLD 22:15 → 4E 22:56
PROVIDERS: Emergency Medicine Emergency Medical Services; Internal Medicine Nephrology; ADMIT Internal Medicine; ATTEND Internal Medicine
DX: G93.41 Metabolic encephalopathy (principal); N17.0 Acute kidney failure with tubular necrosis; E87.2 Acidosis; E87.1 Hypo-osmolality and hyponatremia; N39.0 Urinary tract infection, site not specified; F33.9 Major depressive disorder, recurrent, unspecified; S00.03XA Contusion of scalp, initial encounter; S46.912A Strain of unspecified muscle, fascia and tendon at shoulder and upper arm level, left arm, initial encounter; F41.9 Anxiety disorder, unspecified; N18.3 Chronic kidney disease, stage 3 (moderate); E86.1 Hypovolemia; S80.01XA Contusion of right knee, initial encounter; I12.9 Hypertensive chronic kidney disease with stage 1 through stage 4 chronic kidney disease, or unspecified chronic kidney disease; K21.9 Gastro-esophageal reflux disease without esophagitis; E78.1 Pure hyperglyceridemia; E03.9 Hypothyroidism, unspecified; E66.01 Morbid (severe) obesity due to excess calories; F43.10 Post-traumatic stress disorder, unspecified; E11.22 Type 2 diabetes mellitus with diabetic chronic kidney disease; S66.912A Strain of unspecified muscle, fascia and tendon at wrist and hand level, left hand, initial encounter; B96.1 Klebsiella pneumoniae [K. pneumoniae] as the cause of diseases classified elsewhere; E11.40 Type 2 diabetes mellitus with diabetic neuropathy, unspecified; I65.23 Occlusion and stenosis of bilateral carotid arteries; G47.00 Insomnia, unspecified; F10.21 Alcohol dependence, in remission; W18.30XA Fall on same level, unspecified, initial encounter; Y93.89 Activity, other specified; Y92.89 Other specified places as the place of occurrence of the external cause; Y99.8 Other external cause status; Z91.041 Radiographic dye allergy status; Z86.73 Personal history of transient ischemic attack (TIA), and cerebral infarction without residual deficits; Z87.442 Personal history of urinary calculi; Z90.49 Acquired absence of other specified parts of digestive tract; Z90.710 Acquired absence of both cervix and uterus; Z81.1 Family history of alcohol abuse and dependence; Z83.3 Family history of diabetes mellitus; Z82.5 Family history of asthma and other chronic lower respiratory diseases; Z80.8 Family history of malignant neoplasm of other organs or systems; Z79.899 Other long term (current) drug therapy; Z79.4 Long term (current) use of insulin; Z68.33 Body mass index [BMI] 33.0-33.9, adult

== ENCOUNTER 2020-01-18 11:35 | Inpatient (IN) | payer MEDICARE, OTHER ==
[~2020-01-18] VITALS: Ht 157.4 cm; Wt 83.9 kg
[~2020-01-18 11:35] MED LIST changes: +GABAPENTIN100 M2 PO; +MOBIC15 MG PO; +NEURONTIN600 MG PO; +VENLAFAXINE HYD75 M3 PO; +VENLAFAXINE150 MG PO; +VITAMIN D350 MC2 PO
[2020-01-18 14:26] VITALS: BP 155/80
[2020-01-18 19:25] VITALS: BP 153/68
[2020-01-18 20:00] VITALS: BP 153/68
[2020-01-19 07:45] VITALS: BP 140/54
[2020-01-19 19:42] VITALS: BP 154/53
[2020-01-20 07:24] VITALS: BP 151/61
[2020-01-20 19:41] VITALS: BP 148/68
[2020-01-21 07:44] VITALS: BP 154/66
[2020-01-21 20:00] VITALS: BP 135/85
[2020-01-22 08:00] VITALS: BP 130/66
[2020-01-22 19:54] VITALS: BP 132/64
[2020-01-23 07:52] VITALS: BP 141/68
[2020-01-23 20:00] VITALS: BP 148/76
[2020-01-24 07:37] VITALS: BP 152/68
[2020-01-24 19:16] VITALS: BP 135/74
[2020-01-25 08:00] VITALS: BP 146/58
[2020-01-25 19:24] VITALS: BP 145/60
[2020-01-26 07:28] VITALS: BP 121/69
[2020-01-26] MEDS ORDERED: DULOXETINE HCL60 MG PO (09:18)
[2020-01-26] MEDS ORDERED: Mysoline50 MG PO (09:18)
== END 2020-01-26 14:10 | disposition home or self-care (01) | DRG 885 ==
LOC: 3N 11:35
PROVIDERS: ADMIT Psychiatry & Neurology Psychiatry
PROC: 0HBRXZZ Excision of Toe Nail, External Approach (ICD-10-PCS; principal; 2020-01-19)
DX: F33.2 Major depressive disorder, recurrent severe without psychotic features (principal); F41.9 Anxiety disorder, unspecified; N18.3 Chronic kidney disease, stage 3 (moderate); E11.22 Type 2 diabetes mellitus with diabetic chronic kidney disease; I12.9 Hypertensive chronic kidney disease with stage 1 through stage 4 chronic kidney disease, or unspecified chronic kidney disease; G89.29 Other chronic pain; R41.3 Other amnesia; E11.69 Type 2 diabetes mellitus with other specified complication; F10.10 Alcohol abuse, uncomplicated; G25.0 Essential tremor; E66.01 Morbid (severe) obesity due to excess calories; E55.9 Vitamin D deficiency, unspecified; E11.42 Type 2 diabetes mellitus with diabetic polyneuropathy; K59.00 Constipation, unspecified; F34.1 Dysthymic disorder; B35.1 Tinea unguium; E11.65 Type 2 diabetes mellitus with hyperglycemia; K21.9 Gastro-esophageal reflux disease without esophagitis; E03.9 Hypothyroidism, unspecified; F43.10 Post-traumatic stress disorder, unspecified; F10.11 Alcohol abuse, in remission; Y90.9 Presence of alcohol in blood, level not specified; E78.1 Pure hyperglyceridemia; I65.21 Occlusion and stenosis of right carotid artery; Z86.73 Personal history of transient ischemic attack (TIA), and cerebral infarction without residual deficits; Z03.818 Encounter for observation for suspected exposure to other biological agents ruled out; S46.912D Strain of unspecified muscle, fascia and tendon at shoulder and upper arm level, left arm, subsequent encounter; S00.03XD Contusion of scalp, subsequent encounter; X58.XXXD Exposure to other specified factors, subsequent encounter; S66.912D Strain of unspecified muscle, fascia and tendon at wrist and hand level, left hand, subsequent encounter; Z90.49 Acquired absence of other specified parts of digestive tract; S80.01XD Contusion of right knee, subsequent encounter; Z87.442 Personal history of urinary calculi; Z90.710 Acquired absence of both cervix and uterus; Z80.9 Family history of malignant neoplasm, unspecified; Z83.3 Family history of diabetes mellitus; Z81.1 Family history of alcohol abuse and dependence; Z91.041 Radiographic dye allergy status; Z79.899 Other long term (current) drug therapy; Z68.33 Body mass index [BMI] 33.0-33.9, adult

== ENCOUNTER → 2020-02-28 | Outpatient (CLI) | payer MEDICARE, OTHER ==
[~2020-02-28] MED LIST changes: +CYMBALTA60 MG PO; +DULOXETINE HCL60 MG PO; +LIPITOR40 MG PO; +PLAVIX75 M1 PO; +ST. JOSEPH ASPI81 MG PO; +VIT B12 PO; +[UNRECOGNIZED DRUG - CODE] SQ
--- NOTE | 2020-02-28 12:45 | NUR ---
INFORMED CONSENT OBTAINED FOR LEXISCAN NUCLEAR STRESS TEST WITH DR. WRAY. RESTING EKG NSR WITH A RESTING HR OF 73 WITH BP OF 132/88. LUNGS CLEAR WITH SPO2 OF 96% ON ROOM AIR. PT COMPLETED A 1:00 LEXISCAN PROTOCOL RECEIVING LEXISCAN 0.4 MG IV OVER 10 SECONDS. HAD NO CHEST PAIN OR ANY EKG CHANGES. DID C/O FEELING SHORTNESS OF BREATH THAT WAS RELIEVED IN RECOVERY. HAD A PEAK HR OF 92 WITH BP OF 164/84. LAST RECOVERY HR OF 89 WITH BP OF 156/80. AWAITING SCANNING IN STABLE CONDITION.
== END | disposition home or self-care (01) ==
LOC: CARD 02-21 00:14
PROVIDERS: ATTEND Internal Medicine
DX: I65.23 Occlusion and stenosis of bilateral carotid arteries (principal); R07.9 Chest pain, unspecified

== ENCOUNTER 2020-05-11 11:22 | Inpatient (IN) | payer MEDICARE, OTHER ==
[~2020-05-11] VITALS: Ht 157.5 cm; Wt 83.9 kg
[2020-05-11 11:28] VITALS: BP 164/48
[2020-05-11 14:25] VITALS: BP 162/54
--- NOTE | 2020-05-11 14:33 | NUR ---
A 69, admitted to , under the services of POWER Collins MD with a diagnosis of UNABLE TO AMBULATE. Chief complaint is FALL WITH BACK PAIN. Patient arrived via ambulance from ER. Monitor applied. Initial assessment completed. Vital signs taken and recorded. POWER COLLINS MD notified of admission to the unit. Orders received. See assessment for past medical history, medications and allergies. Patient and/or family oriented to unit. [facility] visitation policy reviewed. Clothing/patient valuable form completed. NOE OTT
[2020-05-11] MEDS ORDERED: NITROSTAT0.4 MG SL (14:49)
[2020-05-11] MEDS ORDERED: COREG12.5 M1 PO (14:50)
[2020-05-11] MEDS ORDERED: PRINIVIL10 MG PO (14:51)
[2020-05-11] MEDS ORDERED: VITAMIN D350 MC2 PO (14:52)
[2020-05-11] MEDS ORDERED: B-12500 MC1 PO (14:52)
--- NOTE | 2020-05-11 14:56 | NUR ---
MED REC UPDATED VIA HOME LIST
[2020-05-11 15:14] VITALS: BP 186/70
[2020-05-11 15:33] VITALS: BP 160/58
[2020-05-11 15:41] LABS: BASO % 0.3 % (0.0-1.0); EOS % 0.2 % (1.0-4.0); HEMATOCRIT 42.1 % (37.0-47.0); LYMPH # 1.1 10*3/uL (1.3-4.4); MEAN CELL VOLUME 90.7 fl (81.0-99.0); MEAN CORPUSCULAR HGB 28.9 pg (27.0-31.0); MEAN CORPUSCULAR HGB CONC 31.8 g/dl (33.0-37.0); MEAN PLATELET VOLUME 10.6 fl (9.6-12.3); MONO # 0.4 10*3/uL (0.1-1.0); NEUT # 8.5 10*3/uL (2.3-7.9); NEUT % 84.1 % (47.0-73.0); PLATELET COUNT AUTOMATED 154 10*3/uL (130-400); RED BLOOD COUNT 4.64 10*6/uL (4.10-5.10); RED CELL DISTRI WIDTH 13.5 % (0-14.5); WHITE BLOOD COUNT 10.1 10*3/uL (4.8-10.8)
[2020-05-11 16:02] LABS: ALBUMIN 3.5 gm/dl (3.1-4.5); ALKALINE PHOSPHATASE 83 U/L (45-117); BUN 17 mg/dl (7-24); CHLORIDE 111 mmol/L (98-107); CREATININE 0.95 mg/dL (0.55-1.02); POTASSIUM 4.4 mmol/L (3.5-5.1); SGOT/AST 32 IU/L (3-35); SGPT/ALT 23 U/L (12-78); SODIUM 142 mmol/L (136-145); TOTAL PROTEIN 7.5 gm/dL (6.4-8.2)
--- NOTE | 2020-05-11 17:15 | NUR ---
IR NOTIFIED OF DR.TRECHA LIZARRAGA.
--- NOTE | 2020-05-11 17:20 | NUR ---
IN TO SEE PT.
--- NOTE | 2020-05-11 18:29 | NUR ---
DILAUDID GIVEN FOR COMPLAINTS OF BACK PAIN RATED 10/10 PER PT. CALL LIGHT IN REACH. WILL MONITOR.
[2020-05-11 18:45] LABS: BILIRUBIN Negative (Negative); BLOOD Trace-Lysed (Negative); CLARITY Cloudy (Clear); COLOR Yellow (Yellow); GLUCOSE Negative (Negative); KETONE Negative (Negative); LEUKO ESTERASE Negative (Negative); NITRITE Positive (Negative); SPECIFIC GRAVITY 1.015 (1.001-1.030); UROBILINOGEN 0.2 E.U./dl (0.0-1.0)
[2020-05-11 18:55] LABS: BACTERIA 4+
--- NOTE | 2020-05-11 18:58 | NUR ---
PER PT, DILAUDID EFFECTIVE. CALL LIGHT IN REACH.
[2020-05-11 20:00] VITALS: BP 138/58
--- NOTE | 2020-05-11 23:27 | NUR ---
PATIENT C/O 10/[address] SHAIK ESPITIA TO GIVE DILAUDID EARLY. MEDICATED AT THIS TIME. WILL CHECK EFFECTIVENESS.
[2020-05-12] VITALS: BP 147/51
--- NOTE | 2020-05-12 | NUR ---
PATIENT SLEEPING. DILAUDID EFFECTIVE. WILL CONTINUE TO MONITOR.
--- NOTE | 2020-05-12 04:00 | NUR ---
PATIENT SLEEPING. NO SIGNS OF DISTRESS. WILL CONTINUE TO MONITOR.
--- NOTE | 2020-05-12 05:02 | NUR ---
PATIENT C/O 9/10 BACK PAIN. MEDICATED WITH NORCO. WILL CHECK EFFECTIVENESS.
[2020-05-12 06:21] LABS: BASO % 0.3 % (0.0-1.0); EOS # 0.1 10*3/uL (0.0-0.4); EOS % 1.1 % (1.0-4.0); HEMATOCRIT 41.5 % (37.0-47.0); LYMPH # 1.2 10*3/uL (1.3-4.4); LYMPH % 12.4 % (27.0-41.0); MEAN CORPUSCULAR HGB 28.9 pg (27.0-31.0); MEAN CORPUSCULAR HGB CONC 31.1 g/dl (33.0-37.0); MEAN PLATELET VOLUME 10.8 fl (9.6-12.3); MONO # 0.5 10*3/uL (0.1-1.0); MONO % 5.4 % (3.0-9.0); NEUT % 80.5 % (47.0-73.0); PLATELET COUNT AUTOMATED 152 10*3/uL (130-400); RED BLOOD COUNT 4.46 10*6/uL (4.10-5.10); RED CELL DISTRI WIDTH 13.8 % (0-14.5); WHITE BLOOD COUNT 9.9 10*3/uL (4.8-10.8)
[2020-05-12 06:40] LABS: BUN 18 mg/dl (7-24); CHLORIDE 107 mmol/L (98-107); CREATININE 1.09 mg/dL (0.55-1.02); POTASSIUM 4.3 mmol/L (3.5-5.1); SODIUM 138 mmol/L (136-145)
[2020-05-12 06:49] LABS: FREE T4 1.18 ng/dl (0.76-1.46)
[2020-05-12 08:00] VITALS: BP 120/50
[2020-05-12 12:00] VITALS: BP 106/49
--- NOTE | 2020-05-12 13:42 | NUR ---
Rapid response called to patients room because she was found on the floor after attempting to go to the bathroom. Blood glucose rechecked and it was 192mg/ml. Patient was assisted by lift from the floor to her bed. She is alert and orinted x3. She states that her back hurts. RN recently administeredher dilaudid .25mg IV for back pain. Pateint was pulled up in bed and head of bed elevated 45 degrees , oxygen at 2lpm/nc applied by respirtatory, resident MD at bedside and states were going to notify Dr Horne and order a troponin and EKG FOR THE PATIENT. RN instructed patient to call for assistance by using the call light. bed placed in low position.
[2020-05-12 13:46] LABS: BASO # 0.1 10*3/uL (0.0-0.1); BASO % 0.7 % (0.0-1.0); EOS # 0.3 10*3/uL (0.0-0.4); EOS % 3.2 % (1.0-4.0); HEMATOCRIT 40.8 % (37.0-47.0); LYMPH # 1.9 10*3/uL (1.3-4.4); LYMPH % 20.8 % (27.0-41.0); MEAN CELL VOLUME 92.5 fl (81.0-99.0); MEAN CORPUSCULAR HGB 28.6 pg (27.0-31.0); MEAN CORPUSCULAR HGB CONC 30.9 g/dl (33.0-37.0); MEAN PLATELET VOLUME 10.7 fl (9.6-12.3); MONO # 0.6 10*3/uL (0.1-1.0); MONO % 6.9 % (3.0-9.0); NEUT # 6.2 10*3/uL (2.3-7.9); NEUT % 68.1 % (47.0-73.0); PLATELET COUNT AUTOMATED 164 10*3/uL (130-400); RED BLOOD COUNT 4.41 10*6/uL (4.10-5.10); RED CELL DISTRI WIDTH 13.5 % (0-14.5); WHITE BLOOD COUNT 9.1 10*3/uL (4.8-10.8)
[2020-05-12 14:14] LABS: ALBUMIN 3.3 gm/dl (3.1-4.5); CREATININE 1.22 mg/dL (0.55-1.02); POTASSIUM 4.6 mmol/L (3.5-5.1); TOTAL PROTEIN 6.8 gm/dL (6.4-8.2)
--- NOTE | 2020-05-12 14:23 | NUR ---
1405 Critical Troponin level called by lab . Troponin 0.060 Dr Irizarry called and notified with no new orders noted.
--- NOTE | 2020-05-12 15:39 | NUR ---
case management attempted to visit with patient, she was resting at this time, patient was a rapid response earlier today. patient lives at home with her , lives in a mobile home, no steps. she has a cane and walker at home, patient is unable to ambulate well at home, will discuss a short term senior living with patient when she is feeling better, case management will follow
[2020-05-12 16:00] VITALS: BP 117/51
[2020-05-13] VITALS: BP 149/54
--- NOTE | 2020-05-13 02:33 | NUR ---
Pt c/o back pain 03/31. PRN norco given. HS BS 252. IVF infusing without difficulty.
--- NOTE | 2020-05-13 03:55 | NUR ---
Pt asleep up to this time. Performed orthostatic BP: Lyin/47; sittin/125; Pt refused standing. Sitting caused pain in patients back, which prompted her refusal of the standing BP. The sitting BP was possibly skewed by her back pain.
--- NOTE | 2020-05-13 04:27 | NUR ---
NOTIFIED DR. KABA OF ORTHOISTATIC BP RESULTS. NO NEW ORDERS GIVEN AT THIS TIME
[2020-05-13 08:00] VITALS: BP 114/87
--- NOTE | 2020-05-13 10:28 | NUR ---
Obstetric Anaesthetist in to talk to patient. Patient states lives at home with her in a mobile trailer. There are 0 steps in the home. Physician: Dr. Artie Keys Pharmacy: [facility] services: has had [facility] in the past Patient's level of ADLs: moderate assistance Patient has working utilities: yes DME: cane, walker Follow-up physician's appointment after d/c: she prefers to make her own follow up appt after discharge Does patient want to access PORTAL?: no Discharge plan discussed with patient. She lives at home with her . She states she is normally independent in her ADLs and has a cane and a walker at home. Discussed short term SNF and she is agreeable. When provided with a list of facilities she chose [facility]. assortment planner notified. ANAYA PERSON
[2020-05-13 12:00] VITALS: BP 136/60
--- NOTE | 2020-05-13 12:46 | NUR ---
Patient requesting a referral to [facility]. Left [facility] a message (closed on Thursday). Faxed initial referral; waiting on PT/OT orders due to lumbar fractures. Covid was ordered. Requires precert and covid results prior to discharge.
--- NOTE | 2020-05-13 14:19 | NUR ---
0800 ON ARRIVAL TO PATIENTS ROOM. PATIENT WAS LYING IN BED AWAKE , ALERT, AND ORIENTED X 3. Patient states her pain feels better because of the neurontin that was given to her this morning. Respirations even and unlabored. VSS 114/87 hEART RATE 65,RR 18, Temp 97.0 o2 Saturation 98 percent. no distress noted. patient educated regarding calling for the bedpan and assistance when needed. Bed low, Side rails up x2. Call light within reach.
--- NOTE | 2020-05-13 14:27 | NUR ---
0900 Dr Massimo faria . RN informed the MD that patient requires stronger pain medication relief. Morphine 1mg IV ORDERED and administered to patient for complaint of back pain 01/29.
--- NOTE | 2020-05-13 14:29 | NUR ---
0730 accucheck 115 mg/ml. Patient requires no sliding scale coverage.
--- NOTE | 2020-05-13 14:30 | NUR ---
1130 Accucheck 144mg/ml/. Patient requires no sliding scale coverage.
--- NOTE | 2020-05-13 14:31 | NUR ---
7507 Patient called and requested to be placed on the bedpan. Patient placed on the bed smith. Patient pulled up in the beds
--- NOTE | 2020-05-13 14:34 | NUR ---
5741 Patient requested for pain medication 01/29. Dilaudid .25mp IV given for pain
[2020-05-13 16:00] VITALS: BP 159/58
--- NOTE | 2020-05-13 17:22 | NUR ---
Patient npo after midnight 05/13/2020 for Abdominal and Pelvis Ultrasound test due to abdominal pain. Patient already had coronavirus nasal swab test completed by nurse and sent to [facility] for evaluation. COVID test is done because of patient future discharged to SNF.
--- NOTE | 2020-05-13 17:24 | NUR ---
FRANCESCO Eng Obtained Covid Swab. Sent to Lab.
--- NOTE | 2020-05-13 20:25 | NUR ---
PT RESTING QUIETLY IN BED, STATES HAS PAIN TO ABDOMEN 10/10. PRN DILAUDID GIVEN. PT AWARE SHE IS NPO AFTER MIDNIGHT FOR AN ULTRASOUND OF THE ABDOMEN AND PELVIS. SHE STATES SHE NEEDS TO HAVE A BM, BUT HAS NOT BEEN SUCCESSFUL. WILL CONTINUE TO MONITOR FOR NEEDS.
--- NOTE | 2020-05-13 22:38 | NUR ---
pT RESTING QUIETLY WITH EYES CLOSED, IN NO APPARENT DISTRESS.
--- NOTE | 2020-05-14 11:56 | NUR ---
patient has been rferred to [facility], covid is pending, patient will need an insurance precert prior to being discharged to [facility]. case mangement/senior program planner will follow
[2020-05-14 12:00] VITALS: BP 123/52
--- NOTE | 2020-05-14 13:22 | NUR ---
145 accucheck completed 62mg/dl . PT ASYMPOMATIC. 1245 ACCUCHECK,RECHECKED 137 MG/DL . NO PROBLEMS NOTED.
--- NOTE | 2020-05-14 13:25 | NUR ---
12 OO NOON PATIENT WAS GIVEN 240 ML 0F MILK AND 480 ML OF ORANGE JUICE.
--- NOTE | 2020-05-14 14:51 | NUR ---
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 Dilaudid 0.25 mg IV given . Patient departed floor via stretcher/gurney by transportation techs to MRI Dept.
[2020-05-14 16:00] VITALS: BP 139/51
[2020-05-14 20:00] VITALS: BP 110/40
[2020-05-15] VITALS: BP 100/58
[2020-05-15 06:52] LABS: BASO % 0.3 % (0.0-1.0); EOS # 0.3 10*3/uL (0.0-0.4); EOS % 3.6 % (1.0-4.0); HEMATOCRIT 35.9 % (37.0-47.0); LYMPH # 1.5 10*3/uL (1.3-4.4); LYMPH % 15.9 % (27.0-41.0); MEAN CELL VOLUME 91.8 fl (81.0-99.0); MEAN CORPUSCULAR HGB 29.2 pg (27.0-31.0); MEAN CORPUSCULAR HGB CONC 31.8 g/dl (33.0-37.0); MEAN PLATELET VOLUME 10.7 fl (9.6-12.3); MONO % 10.9 % (3.0-9.0); NEUT # 6.6 10*3/uL (2.3-7.9); NEUT % 68.9 % (47.0-73.0); PLATELET COUNT AUTOMATED 148 10*3/uL (130-400); RED BLOOD COUNT 3.91 10*6/uL (4.10-5.10); RED CELL DISTRI WIDTH 13.3 % (0-14.5); WHITE BLOOD COUNT 9.5 10*3/uL (4.8-10.8)
[2020-05-15 07:32] LABS: CHLORIDE 108 mmol/L (98-107); POTASSIUM 4.3 mmol/L (3.5-5.1); SODIUM 141 mmol/L (136-145)
[2020-05-15 07:36] LABS: BUN 13 mg/dl (7-24); CREATININE 0.93 mg/dL (0.55-1.02)
[2020-05-15 08:00] VITALS: BP 173/63
--- NOTE | 2020-05-15 08:06 | NUR ---
PHYSICAL THERAPY Screen received pt admitted with fall and compressin fx's of L1-L2 pt to have MRI with possible kyphoplasty, please consult therapy once pt medically appropriate as could benefit from PT assessment, thank you Leesa Francis PT
--- NOTE | 2020-05-15 09:35 | NUR ---
PATIENT C/O BACK PAIN 01/29 AND CONSTIPATION. MEDICATED WITH DILAUDID PER ORDER AND MILK OF MAGNESIA. WILL MONITOR FOR EFFECTIVENESS.
--- NOTE | 2020-05-15 10:35 | NUR ---
PATIENT ASLEEP AT THIS TIME AND APPEARS TO BE COMFORTABLE - PAIN MEDICATION EFFECTIVE.
[2020-05-15 12:00] VITALS: BP 137/47
--- NOTE | 2020-05-15 13:12 | NUR ---
PT MEDICATED WITH PO NORCO PER ORDER FOR C/O PAIN IN LOWER BACK 12/29. WILL MONITOR FOR EFFECTIVENESS.
--- NOTE | 2020-05-15 14:12 | NUR ---
PER PATIENT, PRN NORCO HAS BEEN EFFECTIVE. NO OTHER COMPLAINTS AT THIS TIME.
[2020-05-15 14:25] LABS: ACT PARTIAL THROMBO TIME 27.5 SECONDS (20.0-32.1)
[2020-05-15 16:00] VITALS: BP 125/50
--- NOTE | 2020-05-15 19:59 | NUR ---
PT. C/O LOWER ABD PAIN/CONSTIPATION, NORCO AND M.O.M. GIVEN PER ORDER FOR PAIN RATED "6". SEE MAR.
[2020-05-15 20:00] VITALS: BP 147/58
--- NOTE | 2020-05-15 20:55 | NUR ---
NORCO EFFECTIVE FOR LOWER ABD PAIN. MOM NOT EFFECTIVE YET
[2020-05-16] VITALS: BP 143/73
--- NOTE | 2020-05-16 03:22 | NUR ---
PT C/O ABDOMINAL PAIN ACROSS THE MIDDLE OF ABDOMEN. MEDICATED WITH NORCO PO PER PRN ORDER, SEE EMAR. CALL LIGHT IN REACH.
--- NOTE | 2020-05-16 04:15 | NUR ---
NORCO EFFECTIVE FOR PAIN PER PT.
[2020-05-16 08:00] VITALS: BP 124/65
--- NOTE | 2020-05-16 09:00 | NUR ---
CM in to see patient. Discussed short term rehab and she remains agreeable. She states she can't have the procedure for 5 more days because they have to hold her medications. finished goods planner/social services specialist following for referral. When medically stable, COVID results are back, and precert is received she will be discharged to [facility].
--- NOTE | 2020-05-16 09:31 | NUR ---
Spoke to Dr. Keys regarding kyphoplasty. He states she will be scheduled May [address] Canela is away. Discussed patient c/o bowel not moving after MOM. New orders received for lactulose. Nurse notified.
--- NOTE | 2020-05-16 10:41 | NUR ---
Spoke to Mamie in radiology. Patient's plavix and aspirin need to be on hold for 5 days prior to vertebroplasty. Notified Dr. Keys. Dr. Canela will perform vertebroplasty on 05/22.
[2020-05-16 12:00] VITALS: BP 148/82
[2020-05-16 16:00] VITALS: BP 96/72
[2020-05-16 20:00] VITALS: BP 148/63
--- NOTE | 2020-05-16 21:01 | NUR ---
KELLEY GIVEN PER ORDER FOR LOWER BACK PAIN RATED "7" SEE MAR.
--- NOTE | 2020-05-16 22:00 | NUR ---
NORCO EFFECTIVE FOR PAIN IN BACK PER PT.
[2020-05-17] VITALS: BP 120/51
--- NOTE | 2020-05-17 01:50 | NUR ---
24 HR chart check completed.
--- NOTE | 2020-05-17 04:03 | NUR ---
MEDICATED WITH PO NORCO ORDERED PER PT REQUEST FOR C/O PAIN TO RIGHT HIP RATED 10/10.
[2020-05-17 08:00] VITALS: BP 148/60
--- NOTE | 2020-05-17 09:20 | NUR ---
EKTACO GIVEN FOR COMPLAINTS OF RT PELVIC PAIN 01/29. CALL LIGHT IN REACH. WILL MONITOR.
--- NOTE | 2020-05-17 10:03 | NUR ---
PER PT. KELLEY EFFECTIVE. CALL LIGHT IN REACH. PT IS ABLE TO CHANGE POSITION WITHOUT DISTRESS AT THIS TIME.
[2020-05-17 12:00] VITALS: BP 142/70
--- NOTE | 2020-05-17 14:57 | NUR ---
NOTIFIED OF NEW CONSULT.
[2020-05-17 16:00] VITALS: BP 156/62
--- NOTE | 2020-05-17 16:18 | NUR ---
NORCO GIVEN FOR CONTINUED COMPLAINTS OF RT LOWER PELVIC PAIN RATED 8/10. WILL MONITOR. CALL LIGHT IN REACH. BED ALARM ON.
--- NOTE | 2020-05-17 17:02 | NUR ---
PER PT, NORCO EFFECTIVE. PT REPORT RELIEF AT THIS TIME. CALL LIGHT IN REACH.
--- NOTE | 2020-05-17 18:03 | NUR ---
CONTINUED COMPLAINTS OF RT PELVIC PAIN AT THIS TIME. PAIN 03/31. ALSO ATTEMPTED TO CALL FOR ORDERS. NO ANSWER. WILL TRY AGAIN. WILL GIVE DILAUDID AND ZOFRAN FOR COMPLAINTS OF NAUSEA.
--- NOTE | 2020-05-17 18:09 | NUR ---
DILAUDID GIVEN FOR PAIN RATED 10/10. CALL LIGHT IN REACH.
--- NOTE | 2020-05-17 19:01 | NUR ---
PER PT, DILAUDID EFFECTIVE. CALL LIGHT IN REACH.
[2020-05-17 20:00] VITALS: BP 152/44
--- NOTE | 2020-05-17 20:09 | NUR ---
PATIENT STATES SHE IS SICK TO HER STOMACH. C/O NAUSEA. NOTIFIED DR. BRIONES. EDGAR ORDERED.
[2020-05-18] VITALS: BP 127/45
--- NOTE | 2020-05-18 01:20 | NUR ---
PATIENT COMPLAINING OF 03/31. RIGHT HIP PAIN. STATES IT IS WORSE WHEN SHE ROLLS. MEDICATED WITH NORCO AT THIS TIME. WILL CHECK EFFECTIVENESS. PATIENT STATES "I DONT KNOW WHAT IS WRONG BUT SOMETHING IS" PATIENT IS REQUESTING IMAGING DONE TO R/O A FRACTURE. STATES WHEN SHE FELL SHE ALSO HIT HER HIP. NOTIFIED. DR. BRIONES. HIP XRAY ORDERED.
--- NOTE | 2020-05-18 01:36 | NUR ---
PATIENT TAKEN DOWN TO XRAY
--- NOTE | 2020-05-18 02:20 | NUR ---
PATIENT STATES OZARK IS HELPING. WILL CONTINUE TO MONITOR.
[2020-05-18 07:37] LABS: BUN 17 mg/dl (7-24); CHLORIDE 106 mmol/L (98-107); CREATININE 0.85 mg/dL (0.55-1.02); POTASSIUM 4.7 mmol/L (3.5-5.1); SODIUM 137 mmol/L (136-145)
[2020-05-18 08:00] VITALS: BP 118/44
--- NOTE | 2020-05-18 08:34 | NUR ---
KELLEY GIVEN FOR COMPLAINTS OF RT PELVIC PAIN 01/29. CALL LIGHT IN REACH.
--- NOTE | 2020-05-18 09:16 | NUR ---
PER PT, KELLEY EFFECTIVE. CALL LIGHT IN REACH. PAIN RATED 3/10.
[2020-05-18 12:00] VITALS: BP 132/62
--- NOTE | 2020-05-18 14:16 | NUR ---
NORCO GIVEN FOR CONTINUED RT PELVIC PAIN RATED 10/10. WILL LIZA, CALL LIGHT IN REACH.
--- NOTE | 2020-05-18 15:01 | NUR ---
PER PT, KELLEY EFFECTIVE. PAIN RATED 3/10. CALL LIGHT IN REACH.
[2020-05-18 16:00] VITALS: BP 139/60
--- NOTE | 2020-05-18 18:35 | NUR ---
ASSISTED ON AND OFF BED GUIDRY AT THIS TIME WITH EASE. REQUESTED INDEPENDENCE FOR PELVIC PAIN. CALL LIGHT IN REACH.
[2020-05-18 20:00] VITALS: BP 157/52
[2020-05-19] VITALS: BP 117/55
--- NOTE | 2020-05-19 00:55 | NUR ---
PATIENT C/O BACK AND HIP PAIN. RATES 10/29. MEDICATED WITH NORCO. WILL CHECK EFFECTIVENESS.
--- NOTE | 2020-05-19 01:55 | NUR ---
PATIENT SLEEPING, KELLEY EFFECTIVE. WILL CONTINUE TO MONITOR.
[2020-05-19 06:46] LABS: BASO # 0.1 10*3/uL (0.0-0.1); BASO % 0.7 % (0.0-1.0); EOS # 0.3 10*3/uL (0.0-0.4); EOS % 2.9 % (1.0-4.0); HEMATOCRIT 39.5 % (37.0-47.0); LYMPH # 3.2 10*3/uL (1.3-4.4); LYMPH % 37.7 % (27.0-41.0); MEAN CELL VOLUME 92.7 fl (81.0-99.0); MEAN CORPUSCULAR HGB 28.4 pg (27.0-31.0); MEAN CORPUSCULAR HGB CONC 30.6 g/dl (33.0-37.0); MEAN PLATELET VOLUME 10.6 fl (9.6-12.3); MONO # 0.9 10*3/uL (0.1-1.0); MONO % 10.2 % (3.0-9.0); NEUT # 4.1 10*3/uL (2.3-7.9); PLATELET COUNT AUTOMATED 193 10*3/uL (130-400); RED BLOOD COUNT 4.26 10*6/uL (4.10-5.10); RED CELL DISTRI WIDTH 13.6 % (0-14.5); WHITE BLOOD COUNT 8.5 10*3/uL (4.8-10.8)
[2020-05-19 08:00] VITALS: BP 100/46
--- NOTE | 2020-05-19 10:32 | NUR ---
KELLEY GIVEN FOR COMPLAINTS OF PAIN TO PELVIC AREA. CALL LIGHT IN REACH. WILL MONITOR.
--- NOTE | 2020-05-19 11:00 | NUR ---
BSG 89. PT REPORTS "FEELING OFF". OJ GIVEN. BREAKFAST ORDERED.
--- NOTE | 2020-05-19 11:28 | NUR ---
PER PT, SHE IS FEELING BETTER FOLLOWING NORCO AND OJ. NORCO EFFECTIVE PER PT.
--- NOTE | 2020-05-19 15:22 | NUR ---
NORCO GIVEN FOR RT PELVIC PAIN. CALL LIGHT IN REACH, PAIN RATED 8/10.
[2020-05-19 16:00] VITALS: BP 134/95
--- NOTE | 2020-05-19 16:20 | NUR ---
PER PT, KELLEY EFFECTIVE. CALL LIGHT IN REACH.
[2020-05-19 20:00] VITALS: BP 134/48
--- NOTE | 2020-05-19 21:37 | NUR ---
NORCO GIVEN FOR C/O PAIN TO BACK. WILL REASSESS
--- NOTE | 2020-05-19 22:37 | NUR ---
NORCO APPEARS EFFECTIVE FOR PAIN, PATIENT ABLE TO REST.
[2020-05-20] VITALS: BP 144/63
--- NOTE | 2020-05-20 00:20 | NUR ---
patient continues to rest.
[2020-05-20 08:00] VITALS: BP 140/42
--- NOTE | 2020-05-20 13:48 | NUR ---
NORCO AND MOM GIVEN AT THIS TIME FOR BACK PAIN AND CONSTIPATION COMPLAINTS. CALL LIGHT IN REACH. WILL MONITOR.
--- NOTE | 2020-05-20 14:45 | NUR ---
PER PT, NORCO EFFECTIVE. CALL LIGHT IN REACH. REQUESTING SUPPOSITORY AT THIS TIME. NOTIFIED. NEW ORDERS REC'D.
--- NOTE | 2020-05-20 16:18 | NUR ---
CRYING IN PAIN. REQUESTING SOMETHING TO HELP. DILAUDID GIVEN AT THIS TIME. CALL LIGHT IN REACH. WILL MONITOR.
--- NOTE | 2020-05-20 16:46 | NUR ---
DILAUDID EFFECTIVE PER PT. CALL LIGHT IN REACH.
--- NOTE | 2020-05-20 17:00 | NUR ---
DULCOLAX EFFECTIVE FOR SMALL HARD BM.
--- NOTE | 2020-05-20 17:26 | NUR ---
REQUESTING ANOTHER DULCOLAX FOR CONSTIPATION. CALLED . ORDERS FOR FLEET ENEMA REC'D SEE AUG.
[2020-05-20 20:00] VITALS: BP 157/51
--- NOTE | 2020-05-20 20:00 | NUR ---
PATIENT RESTING IN BED TALKING ON THE PHONE. DENIES ANY NEEDS/COMPLAINTS AT THIS TIME. ASSESSMENT COMPLETE. RESPS WNL. BED IN LOWEST POSITION. CALL LIGHT WITHIN REACH.
--- NOTE | 2020-05-20 23:00 | NUR ---
24 HR chart check completed.
--- NOTE | 2020-05-20 23:08 | NUR ---
MEDICATED WITH PRN NORCO FOR CO BACK PAIN. WILL ASSESS EFFECTIVENESS. CALL LIGHT WITHIN REACH.
[2020-05-21] VITALS: BP 153/84
--- NOTE | 2020-05-21 00:08 | NUR ---
NORCO EFFECTIVE PER PATIENT.
--- NOTE | 2020-05-21 05:54 | NUR ---
MEDICATED WITH PRN NORCO FOR CO BACK PAIN. WILL ASSESS EFFECTIVENESS.
[2020-05-21 06:28] LABS: BASO # 0.1 10*3/uL (0.0-0.1); BASO % 0.6 % (0.0-1.0); EOS # 0.3 10*3/uL (0.0-0.4); EOS % 3.6 % (1.0-4.0); HEMATOCRIT 39.7 % (37.0-47.0); LYMPH # 3.2 10*3/uL (1.3-4.4); LYMPH % 38.6 % (27.0-41.0); MEAN CELL VOLUME 91.9 fl (81.0-99.0); MEAN CORPUSCULAR HGB 28.7 pg (27.0-31.0); MEAN CORPUSCULAR HGB CONC 31.2 g/dl (33.0-37.0); MEAN PLATELET VOLUME 10.5 fl (9.6-12.3); MONO # 0.7 10*3/uL (0.1-1.0); MONO % 8.5 % (3.0-9.0); NEUT % 48.3 % (47.0-73.0); PLATELET COUNT AUTOMATED 216 10*3/uL (130-400); RED BLOOD COUNT 4.32 10*6/uL (4.10-5.10); RED CELL DISTRI WIDTH 13.6 % (0-14.5); WHITE BLOOD COUNT 8.3 10*3/uL (4.8-10.8)
[2020-05-21 06:40] LABS: BUN 22 mg/dl (7-24); CHLORIDE 103 mmol/L (98-107); CREATININE 0.98 mg/dL (0.55-1.02); SODIUM 138 mmol/L (136-145)
[2020-05-21 08:00] VITALS: BP 112/55
--- NOTE | 2020-05-21 08:10 | NUR ---
MEDICATED WITH PRN IV DILAUDID FOR LOWER BACK PAIN RADIATING TO RIGHT SIDE.
--- NOTE | 2020-05-21 09:00 | NUR ---
PRN IV DILAUDID SOMEWHAT EFFECTIVE, PER PATIENT.
--- NOTE | 2020-05-21 09:00 | NUR ---
CM in to see patient. No new needs or request at this time. Discussed short term rehab and her vertebroplasty scheduled for tomorrow. She remains agreeable to [facility]. Awaiting PT/OT evals when patient is able to participate. PCR negative. When medically stable and precert is obtained she will be discharged to [facility]. mission planner following.
--- NOTE | 2020-05-21 09:32 | NUR ---
Clinical updates faxed to [employer] for review. Patient unable to participate in therapy until Kyphoplasty. Unable to obtain precert/auth until patient can participate in therapy.
[2020-05-21 12:00] VITALS: BP 128/43
--- NOTE | 2020-05-21 12:52 | NUR ---
MEDICATED WITH PRN PO NORCO FOR LOWER BACK/RIGHT SIDE PAIN.
--- NOTE | 2020-05-21 13:45 | NUR ---
PRN PO NORCO EFFECTIVE, PER PATIENT.
[2020-05-21 16:00] VITALS: BP 100/71
--- NOTE | 2020-05-21 16:54 | NUR ---
MEDICATED WITH PRN IV DILAUDID FOR LOWER BACK/RIGHT HIP/SIDE PAIN.
--- NOTE | 2020-05-21 17:50 | NUR ---
PRN IV DILAUDID EFFECTIVE, PER PATIENT.
--- NOTE | 2020-05-21 19:45 | NUR ---
PATIENT RESTING IN BED. DENIES ANY NEEDS. RESPS WNL. ASSESSMENT COMPLETE. CALL LIGHT IN REACH.
[2020-05-21 20:00] VITALS: BP 148/78
--- NOTE | 2020-05-21 20:30 | NUR ---
24 HR chart check completed.
--- NOTE | 2020-05-21 21:52 | NUR ---
MEDICATED WITH PRN NORCO FOR CO BACK PAIN. WILL ASSESS EFFECTIVENESS.
--- NOTE | 2020-05-21 22:52 | NUR ---
NORCO EFFECTIVE PER PATIENT.
[2020-05-22] VITALS (15 sets, daily range): BP systolic 104–144; BP diastolic 46–88
--- NOTE | 2020-05-22 05:53 | NUR ---
MEDICATED WITH PRN NORCO FOR CO BACK PAIN. WILL ASSESS EFFECTIVENESS.
--- NOTE | 2020-05-22 06:53 | NUR ---
NORCO EFFEFCTIVE PER PATIENT.
--- NOTE | 2020-05-22 08:37 | NUR ---
MEDICATED WITH PRN IV DILAUDID FOR LOWER BACK PAIN, ALSO MILK OF MAGNESIA FOR CONSTIPATION. HELD AM LISINOPRIL FOR BP 104/48.
--- NOTE | 2020-05-22 09:00 | NUR ---
CM in to see patient. No new needs or request at this time. Discussed her vertebroplasty. She states she is scheduled for tomorrow. Verified with nurse. Discussed short term rehab at [facility] and she remains agreeable. grey roll worker following,
--- NOTE | 2020-05-22 09:00 | NUR ---
HELD AM LISINOPRIL FOR BP 104/48
--- NOTE | 2020-05-22 09:30 | NUR ---
PRN IV DILAUDID EFFECTIVE, PER PATIENT.
--- NOTE | 2020-05-22 11:01 | NUR ---
PER INTERVENTIONAL RADIOLOGY STAFF, PATIENT IS SCHEDULED IN OR FOR KYPHOPLASTY TODAY AT 1330, WILL REMAIN NPO FOR LUNCH.
--- NOTE | 2020-05-22 12:21 | NUR ---
Discussed with patient her questions about [facility]. Asked patient if she would like to be referred to another short term rehab and she states "[facility] is fine."
--- NOTE | 2020-05-22 12:45 | NUR ---
PATIENT TO OR BY BED FOR KYPHOPLASTY W/DR. RAMOS.
--- NOTE | 2020-05-22 14:40 | NUR ---
PATIENT RETURNED FROM OR, RESUMING MEDS AND DIET.
--- NOTE | 2020-05-22 14:45 | NUR ---
PATIENT AWAKE, ALERT AND ORIENTED. BANDAID DRESSING TO LOWER BACK DRY/INTACT. [place] SITE TO RIGHT HAND NOTED. RESPIRATIONS EASY AND REGULAR, ON ROOM AIR, SEE VS'S FLOW SCREEN. RESUMING DIET, PATIENT INSTRUCTED THAT SHE MAY ORDER A MEAL. SHE C/O LOW BACK PAIN RATED 8/10 ON PAIN SCALE.
--- NOTE | 2020-05-22 14:51 | NUR ---
MEDICATED WITH PRN IV DILAUDID FOR LOWER BACK PAIN.
--- NOTE | 2020-05-22 15:33 | NUR ---
ADMINISTERED PO LACTULOSE X 1 ORDERED FOR CONSTIPATION. ORDER TO REPEAT DOSE IN AM IF NOT EFFECTIVE BY THEN.
--- NOTE | 2020-05-22 15:45 | NUR ---
PRN IV DILAUDID EFFECTIVE, PER PATIENT.
--- NOTE | 2020-05-22 21:00 | NUR ---
RESTING IN BED. RESPIRATIONS EASY. LUNGS DIMINISHED, CLEAR. PULSE OX 95% RA. BANDAID IN PLACE TO LOWER BACK KYPHOPLASTY SITE. CALL LIGHT WITHIN REACH. NO VOICED COMPLAINTS
--- NOTE | 2020-05-22 22:37 | NUR ---
MEDICATED WITH NORCO PER PRN ORDER FOR COMPLAINTS OF BACK PAIN RATING A 5. WILL MONITOR
--- NOTE | 2020-05-22 23:30 | NUR ---
MEDS EFFECTIVE, SLEEPING. RESPIRATIONS EASY. CALL LIGHT WITHIN REACH
[2020-05-23] VITALS (7 sets, daily range): BP systolic 97–167; BP diastolic 49–64
--- NOTE | 2020-05-23 03:10 | NUR ---
24 HR chart check completed.
--- NOTE | 2020-05-23 06:28 | NUR ---
MEDICATED WITH NORCO PER PRN ORDER FOR COMPLAINTS OF BACK PAIN RATING A 5. CALL LIGHT WITHIN REACH. WILL MONITOR
--- NOTE | 2020-05-23 07:10 | NUR ---
MEDS APPEAR EFFECTIVE. SLEEPING. RESPIRATIONS EASY. CALL LIGHT WITHIN REACH
--- NOTE | 2020-05-23 08:07 | NUR ---
Additional clinicals faxed to [facility] for review. Patient having procedure today then will be able to work with therapy. Requires evals and precert.
--- NOTE | 2020-05-23 09:56 | NUR ---
HELD AM LISINOPRIL FOR BP 98/58.
--- NOTE | 2020-05-23 10:26 | NUR ---
Discussed with Dr. Keys the need for PT/OT evals for referral to [facility]. Orders received for PT/OT as tolerated and to clear with Dr. Canela. Spoke to Savanna in radiology and Dr. Canela is not here today. Notified Dr. Keys. Dr. Keys stated to order PT/OT as tolerated. demand planner notified.
--- NOTE | 2020-05-23 12:00 | NUR ---
PHYSICAL THERAPY Physical Therapy evaluation completed on 5th floor with full evaluation to follow. Recommend physical therapy per plan of care and SNF upon discharge. Thank you for this referral. Leesa Francis PT
--- NOTE | 2020-05-23 12:05 | NUR ---
Occupational Therapy evaluation completed on five with full evaluation to follow. Recommend occupational therapy per plan of care and SNF upon discharge. Thank you for this referral. Simi Olmos OTR/L
--- NOTE | 2020-05-23 12:53 | NUR ---
PATIENT C/O SEVERE PAIN TO RIGHT LOWER QUADRANT OF ABDOMEN RADIATING TO RIGHT GROIN DURING EXCERCISE WITH PHYSICAL THERAPY. PER PHYSICAL THERAPIST, PATIENT BECAME DIAPHORETIC WHEN PATIENT C/O PAIN. DR. WRAY NOTIFIED, OBTAINED ORDER FOR DILAUDID 0.25MG IV X 1 NOW.
--- NOTE | 2020-05-23 13:23 | NUR ---
Therapy evals completed and faxed to [facility], [facility], asked to start precert ALBINO. Waiting on approval.
--- NOTE | 2020-05-23 14:12 | NUR ---
IV DILAUDID X 1 ADMINISTERED ORDERED FOR RLQ/RT GROIN PAIN.
--- NOTE | 2020-05-23 14:50 | NUR ---
ADMINISTERED FLEETS ENEMA FOR CONSTIPATION AT THIS TIME.
--- NOTE | 2020-05-23 15:46 | NUR ---
MEDICATED WITH PRN PO NORCO FOR RIGHT GROIN/RIGHT LOWER QUADRANT PAIN.
--- NOTE | 2020-05-23 16:45 | NUR ---
PRN PO NORCO NOT EFFECTIVE FOR PAIN, PER PATIENT.
[2020-05-24] VITALS: BP 150/36
--- NOTE | 2020-05-24 01:30 | NUR ---
MEDICATED WITH NORCO PER PRN ORDER FOR C/O PAIN.
--- NOTE | 2020-05-24 02:30 | NUR ---
NORCO EFFECTIVE FOR PAIN.
[2020-05-24 06:26] LABS: BASO # 0.1 10*3/uL (0.0-0.1); BASO % 0.7 % (0.0-1.0); EOS # 0.3 10*3/uL (0.0-0.4); EOS % 3.5 % (1.0-4.0); LYMPH # 2.6 10*3/uL (1.3-4.4); LYMPH % 28.6 % (27.0-41.0); MEAN CELL VOLUME 92.2 fl (81.0-99.0); MEAN CORPUSCULAR HGB 28.6 pg (27.0-31.0); MEAN PLATELET VOLUME 10.5 fl (9.6-12.3); MONO # 0.8 10*3/uL (0.1-1.0); MONO % 8.7 % (3.0-9.0); NEUT # 5.2 10*3/uL (2.3-7.9); NEUT % 58.3 % (47.0-73.0); PLATELET COUNT AUTOMATED 209 10*3/uL (130-400); RED BLOOD COUNT 4.34 10*6/uL (4.10-5.10); RED CELL DISTRI WIDTH 13.2 % (0-14.5); WHITE BLOOD COUNT 8.9 10*3/uL (4.8-10.8)
[2020-05-24 06:30] LABS: ALBUMIN 3.2 gm/dl (3.1-4.5); BUN 23 mg/dl (7-24); CHLORIDE 105 mmol/L (98-107); CREATININE 1.09 mg/dL (0.55-1.02); POTASSIUM 5.1 mmol/L (3.5-5.1); SGOT/AST 57 IU/L (3-35); SGPT/ALT 47 U/L (12-78); SODIUM 139 mmol/L (136-145)
[2020-05-24 06:32] LABS: ALKALINE PHOSPHATASE 136 U/L (45-117); TOTAL PROTEIN 7.4 gm/dL (6.4-8.2)
[2020-05-24 08:00] VITALS: BP 149/69
--- NOTE | 2020-05-24 08:27 | NUR ---
PT REQUESTED AND WAS MEDICATED WITH NORCO FOR C/O BACK/GROIN PAIN. CALL LIGHT IN REACH. WILL MONITOR
--- NOTE | 2020-05-24 09:00 | NUR ---
CM in to see patient. No new needs or request at this time. Awaiting precert for [facility]. account planner following.
--- NOTE | 2020-05-24 09:15 | NUR ---
MEDICATION EFFECTIVE. CALL LIGHT IN REACH. WILL MONITOR.
--- NOTE | 2020-05-24 09:51 | NUR ---
OT NOTE Pt was seen this A.M. 1:1 for 15 minute OT session. Upon arrival pt was supine in bed. Pt identified by name and and had no complaints at this time. Prior to start of activity pt was able to verbalize 2/3 spinal precautions pt re educated on all 3. Pt educated on log roll technique for back protection which she presented with good carry over and was able to transfer sit to supine with CGA. While sitting EOB educated pt on compensatory technique to laxmi B socks within back precautions. Pt was unable to complete due to pain in her L groin area which she did not rate on 0-10 pain scale. Socks were donned at maxA. Sit to stand completed from bed level with CGA and use of w/w for UE support. Challenged pt's static standing tolerance needed for increased I in self care tasks and functional transfers. Pt was able to tolerate aprox 4 minutes of activity before sitting due to fatigue. Functional mobility was then completed to the bathroom with CGA and use of w/w. There she transferred on/off standard commode with CGA for safety and use of grab bar. Functional mobility was then completed back to the recliner with CGA an use of w/w. There she was left sitting upright in the recliner with call light in hand, tray table in place, and body alarm activated for safety. Continue with rec D/C plan to SNF. DANIELE Wiseman
[2020-05-24 12:00] VITALS: BP 136/62; BP 156/64
--- NOTE | 2020-05-24 13:25 | NUR ---
DR WRAY CALLED RE: PT C/O GAS PAIN AND ABDOMINAL CRAMPING. ORDERS RECEIVED.
--- NOTE | 2020-05-24 13:31 | NUR ---
PT REQUESTED AND WAS MEDICATED WITH ZOFRAN IV FOR C/O NAUSEA. BENTYL GIVEN FOR C/O ABDOMINAL CRAMPING. LACULOSE DOSE REFUSED BY PATIENT. WILL MONITOR
--- NOTE | 2020-05-24 14:20 | NUR ---
MEDICATION EFFECTIVE PER PT. WILL MONITOR
--- NOTE | 2020-05-24 15:59 | NUR ---
PHYSICAL THERAPY Patient completed log rolling to the R side with SBA. Patient was able to complete side-lying to sitting on EOB with SBA. Patient sat on EOB with SBA. Patient performed STS from EOB with CGA. Patient had no pain in the low back or Left lower quadrant of the abdominal area. Patient performed 70' x 1 with Wh Walker abd CGA with no LOB and no SOB. Patient did not experience any pain with gait. Patient was 1:1 with this PAN DUMPER for 18 minutes total. SANTOS PALMER PAN DUMPER
[2020-05-24 16:00] VITALS: BP 123/96
--- NOTE | 2020-05-24 17:30 | NUR ---
Patient resting quietly with no c/o discomfort. Respirations easy and regular. Vital signs stable. No overt distress. CHRISTEN THOMPSON R
--- NOTE | 2020-05-24 19:40 | NUR ---
PT RESTING IN BED. C/O LOWER ABD PAIN, RATES PAIN 8 ON PAIN SCALE 0-10. MEDICATGED WITH NORCO PO PER PRN ORDER, SEE EMAR. CALL LIGHT IN REACH.
[2020-05-24 20:00] VITALS: BP 158/44
--- NOTE | 2020-05-24 20:30 | NUR ---
RESTING IN BED. RESP-EASY AND REGULAR. STATES MEDICATION WAS EFFECTIVE. CALL LIGHT IN REACH.
--- NOTE | 2020-05-24 21:07 | NUR ---
TOLERATED ROUTINE MED. [id number], SEE EMAR. CALL LIGHT IN REACH.
[2020-05-24 23:03] VITALS: BP 142/60
--- NOTE | 2020-05-24 23:10 | NUR ---
CALLED DR. BRIONES PT REQUESTING SLEEPING PILL. HE WILL LOOK INTO IT.
--- NOTE | 2020-05-24 23:25 | NUR ---
RESTORIL 15MG GIVEN P.O. X1 PER ORDERS OF DR. BRIONES FOR PT. COMPLAINTS OF INSOMNIA AND INABILITY TO SLEEP. RESTING QUIETLY IN BED WITH CALL LIGHT IN REACH AND BED IN LOW POSITION. ENCOURAGED PATIENT TO CALL FOR FURTHER COMPLAINTS OR UNRELIEVED SYMPTOMS. WILL FOLLOW. RN AWARE.
[2020-05-25] VITALS: BP 142/60
--- NOTE | 2020-05-25 00:06 | NUR ---
RESTORIL EFFECTIVE. PT. SLEEPING SOUNDLY IN BED. NO DISTRESS NOTED. CALL LIGHT IN REACH. BED IN LOW POSITION.
--- NOTE | 2020-05-25 07:15 | NUR ---
Patient has received auth for [employer], ok to go today if medically stable for discharge.
--- NOTE | 2020-05-25 07:17 | NUR ---
Notified Dr. Keys patient can be discharged to [facility] today if medically stable.
[2020-05-25 08:00] VITALS: BP 100/42
--- NOTE | 2020-05-25 10:01 | NUR ---
EKTACO GIVEN FOR COMPLAINTS OF PAIN TO RT FLANK. WILL MONITOR. CALL LIGHT IN REACH.
--- NOTE | 2020-05-25 10:17 | NUR ---
Pt refused physical therapy today stating she has too much R groin pain. 01/29 pain. Pt lying L sideling in bed with all needs met. RN notified of refusal. Bala Souza, ABSORPTION PLANT OPERATOR
--- NOTE | 2020-05-25 10:56 | NUR ---
PER PT, NORCO EFFECTIVE.
[2020-05-25] MEDS ORDERED: DOK COLACE100 MG PO (11:37)
--- NOTE | 2020-05-25 11:51 | NUR ---
Patient is discharged to [facility], she called her for transport. He is transorting her at 12:30; gas station clerk and nursing notified, DC information emailed to [facility]enna per her request.
--- NOTE | 2020-05-25 12:16 | NUR ---
ATTEMPTED TO CALL [facility] FOR NURSE TO NURSE. SPOKE WITH ELDER CHAMPAGNE, SAID SHE WOULD CALL BACK SHE WAS IN MIDDLE OF MED PASS. INFORMED HER THAT THE PTs WAS ON HIS WAY TO GET HER.
--- NOTE | 2020-05-25 12:40 | NUR ---
Discharge instructions reviewed with patient/family. Patient receptive and verbalizes understanding. Follow-up care arranged. Written instructions given to patient/family. NOE OTT
--- NOTE | 2020-05-25 15:14 | NUR ---
PHYSICAL THERAPY CO-SIGN I approve of the Phyical Therapy notes written above. Leesa Francis PT
--- NOTE | 2020-05-25 15:35 | NUR ---
OCCUPATIONAL THERAPY CO-SIGN I approve of the Occupational Therapy notes written above. MIMI VERGARA, OTR/L
== END 2020-05-25 12:40 | disposition other institution (70) | DRG 516 ==
LOC: ED 11:22 → 4E 13:56 → EDHOLD 13:56 → 5E 13:56 → 4E 14:25 → 5E 05-20 18:13
PROVIDERS: Hospitalist; Internal Medicine Nephrology; ADMIT Internal Medicine; ATTEND Internal Medicine
PROC: 0QU03JZ Supplement Lumbar Vertebra with Synthetic Substitute, Percutaneous Approach (ICD-10-PCS; principal; 2020-05-22)
DX: S32.020A Wedge compression fracture of second lumbar vertebra, initial encounter for closed fracture (principal); F33.9 Major depressive disorder, recurrent, unspecified; N39.0 Urinary tract infection, site not specified; G25.0 Essential tremor; N18.30 Chronic kidney disease, stage 3 unspecified; E03.9 Hypothyroidism, unspecified; K21.9 Gastro-esophageal reflux disease without esophagitis; E66.01 Morbid (severe) obesity due to excess calories; E55.9 Vitamin D deficiency, unspecified; E53.8 Deficiency of other specified B group vitamins; E78.1 Pure hyperglyceridemia; I95.1 Orthostatic hypotension; F41.9 Anxiety disorder, unspecified; F43.10 Post-traumatic stress disorder, unspecified; E11.22 Type 2 diabetes mellitus with diabetic chronic kidney disease; I12.9 Hypertensive chronic kidney disease with stage 1 through stage 4 chronic kidney disease, or unspecified chronic kidney disease; E11.42 Type 2 diabetes mellitus with diabetic polyneuropathy; E11.69 Type 2 diabetes mellitus with other specified complication; I65.21 Occlusion and stenosis of right carotid artery; S00.03XA Contusion of scalp, initial encounter; S46.912A Strain of unspecified muscle, fascia and tendon at shoulder and upper arm level, left arm, initial encounter; S66.912A Strain of unspecified muscle, fascia and tendon at wrist and hand level, left hand, initial encounter; S80.01XA Contusion of right knee, initial encounter; R41.3 Other amnesia; K59.00 Constipation, unspecified; B96.20 Unspecified Escherichia coli [E. coli] as the cause of diseases classified elsewhere; M25.551 Pain in right hip; M25.552 Pain in left hip; E87.5 Hyperkalemia; I95.9 Hypotension, unspecified; Z68.33 Body mass index [BMI] 33.0-33.9, adult; Z86.73 Personal history of transient ischemic attack (TIA), and cerebral infarction without residual deficits; Z90.49 Acquired absence of other specified parts of digestive tract; Z90.710 Acquired absence of both cervix and uterus; Z80.9 Family history of malignant neoplasm, unspecified; Z83.3 Family history of diabetes mellitus; Z91.041 Radiographic dye allergy status; Z79.82 Long term (current) use of aspirin; Z87.442 Personal history of urinary calculi; Z79.4 Long term (current) use of insulin; Z79.899 Other long term (current) drug therapy; Z95.5 Presence of coronary angioplasty implant and graft; W19.XXXA Unspecified fall, initial encounter; Y93.89 Activity, other specified; Y92.89 Other specified places as the place of occurrence of the external cause; Y99.8 Other external cause status; Z20.828 Contact with and (suspected) exposure to other viral communicable diseases

== ENCOUNTER → 2020-11-22 | Outpatient (CLI) | payer MEDICARE, OTHER ==
[~2020-11-22] MED LIST changes: +B-12500 MC1 PO; +COREG12.5 M1 PO; +DOK COLACE100 MG PO; +NITROSTAT0.4 MG SL; +PRINIVIL10 MG PO
== END | disposition home or self-care (01) ==
LOC: RAD 11:40
PROVIDERS: ATTEND Internal Medicine
DX: M48.07 Spinal stenosis, lumbosacral region (principal); I70.0 Atherosclerosis of aorta; Z98.890 Other specified postprocedural states

== ENCOUNTER 2020-12-03 12:09 | Emergency (ER) | payer MEDICARE, OTHER ==
[~2020-12-03] VITALS: Ht 157.4 cm; Wt 84.8 kg
[2020-12-03 13:36] VITALS: BP 148/62
[2020-12-03 13:43] LABS: BASO % 0.4 % (0.0-1.0); EOS # 0.1 10*3/uL (0.0-0.4); HEMATOCRIT 45.2 % (37.0-47.0); LYMPH # 2.4 10*3/uL (1.3-4.4); LYMPH % 25.2 % (27.0-41.0); MEAN CELL VOLUME 89.5 fl (81.0-99.0); MEAN CORPUSCULAR HGB 28.5 pg (27.0-31.0); MEAN CORPUSCULAR HGB CONC 31.9 g/dl (33.0-37.0); MEAN PLATELET VOLUME 10.3 fl (9.6-12.3); MONO # 0.7 10*3/uL (0.1-1.0); NEUT # 6.3 10*3/uL (2.3-7.9); PLATELET COUNT AUTOMATED 167 10*3/uL (130-400); RED BLOOD COUNT 5.05 10*6/uL (4.10-5.10); RED CELL DISTRI WIDTH 13.9 % (0-14.5); WHITE BLOOD COUNT 9.6 10*3/uL (4.8-10.8)
[2020-12-03 13:59] LABS: ALBUMIN 3.3 gm/dl (3.1-4.5); BUN 30 mg/dl (7-24); CHLORIDE 108 mmol/L (98-107); CREATININE 1.05 mg/dL (0.55-1.02); POTASSIUM 4.2 mmol/L (3.5-5.1); SGOT/AST 31 IU/L (3-35); SGPT/ALT 38 U/L (12-78); SODIUM 139 mmol/L (136-145); TOTAL PROTEIN 7.5 gm/dL (6.4-8.2)
[2020-12-03 14:00] LABS: ALKALINE PHOSPHATASE 100 U/L (45-117)
== END 2020-12-03 17:06 | disposition home or self-care (01) ==
LOC: ED 12:09
PROVIDERS: Physician Assistant
DX: E11.65 Type 2 diabetes mellitus with hyperglycemia (principal); Z91.041 Radiographic dye allergy status; Z79.899 Other long term (current) drug therapy; Z79.82 Long term (current) use of aspirin; Z79.4 Long term (current) use of insulin; Z87.442 Personal history of urinary calculi; Z90.49 Acquired absence of other specified parts of digestive tract; Z90.711 Acquired absence of uterus with remaining cervical stump; Z98.51 Tubal ligation status

== ENCOUNTER 2021-03-13 05:08 | Inpatient (IN) | payer MEDICARE, OTHER ==
[~2021-03-13] VITALS: Ht 157.4 cm; Wt 88.2 kg
[2021-03-13 05:11] VITALS: BP 125/93
[2021-03-13 06:07] LABS: ALBUMIN 3.2 gm/dl (3.1-4.5); CREATININE 1.65 mg/dL (0.55-1.02); TOTAL PROTEIN 6.6 gm/dL (6.4-8.2)
[2021-03-13 06:20] LABS: BASO % 0.3 % (0.0-1.0); EOS # 0.1 10*3/uL (0.0-0.4); EOS % 0.9 % (1.0-4.0); HEMATOCRIT 36.7 % (37.0-47.0); LYMPH # 0.7 10*3/uL (1.3-4.4); LYMPH % 9.4 % (27.0-41.0); MEAN CELL VOLUME 93.9 fl (81.0-99.0); MEAN CORPUSCULAR HGB 29.7 pg (27.0-31.0); MEAN CORPUSCULAR HGB CONC 31.6 g/dl (33.0-37.0); MEAN PLATELET VOLUME 11.5 fl (9.6-12.3); MONO # 0.8 10*3/uL (0.1-1.0); MONO % 10.7 % (3.0-9.0); NEUT # 5.8 10*3/uL (2.3-7.9); NEUT % 78.4 % (47.0-73.0); PLATELET COUNT AUTOMATED 119 10*3/uL (130-400); RED BLOOD COUNT 3.91 10*6/uL (4.10-5.10); RED CELL DISTRI WIDTH 13.5 % (0-14.5); WHITE BLOOD COUNT 7.4 10*3/uL (4.8-10.8)
[2021-03-13 10:35] VITALS: BP 136/43
[2021-03-13 12:48] LABS: ABG BASE EXCESS -1.9 mmol/L (-2.0-2.0); ARTERIAL BLOOD GAS PH 7.366 (7.35-7.45); ARTERIAL BLOOD GAS PO2 100.4 (80-90)
[2021-03-13] MEDS ORDERED: NAPROXEN500 MG PO (13:58)
[2021-03-13] MEDS ORDERED: TRAMADOL HCL50 MG PO (13:59)
[2021-03-13] MEDS ORDERED: VITAMIN D350 MCG PO (13:59)
[2021-03-13] MEDS ORDERED: LEVOTHYROXINE100 MC1 PO (14:01)
[2021-03-13] MEDS ORDERED: DULOXETINE HCL60 MG PO (14:01)
[2021-03-13] MEDS ORDERED: NEURONTIN300 MG PO (14:04)
[2021-03-13 16:00] VITALS: BP 130/71
[2021-03-13 20:00] VITALS: BP 199/55
[2021-03-14] VITALS: BP 115/79; BP 125/43
[2021-03-14 07:26] LABS: BASO % 0.1 % (0.0-1.0); EOS % 0.3 % (1.0-4.0); HEMATOCRIT 35.7 % (37.0-47.0); LYMPH # 1.2 10*3/uL (1.3-4.4); LYMPH % 17.1 % (27.0-41.0); MEAN CELL VOLUME 95.5 fl (81.0-99.0); MEAN CORPUSCULAR HGB 29.9 pg (27.0-31.0); MEAN CORPUSCULAR HGB CONC 31.4 g/dl (33.0-37.0); MEAN PLATELET VOLUME 11.4 fl (9.6-12.3); MONO # 0.8 10*3/uL (0.1-1.0); MONO % 11.2 % (3.0-9.0); NEUT # 5.1 10*3/uL (2.3-7.9); PLATELET COUNT AUTOMATED 99 10*3/uL (130-400); RED BLOOD COUNT 3.74 10*6/uL (4.10-5.10); RED CELL DISTRI WIDTH 13.5 % (0-14.5); WHITE BLOOD COUNT 7.1 10*3/uL (4.8-10.8)
[2021-03-14 07:44] LABS: CREATININE 1.43 mg/dL (0.55-1.02); POTASSIUM 3.7 mmol/L (3.5-5.1)
[2021-03-14 08:00] VITALS: BP 154/52
[2021-03-14 12:00] VITALS: BP 156/56
[2021-03-14 16:00] VITALS: BP 139/48
[2021-03-14 20:00] VITALS: BP 192/57
[2021-03-15] VITALS: BP 139/50
[2021-03-15 05:59] LABS: POTASSIUM 4.3 mmol/L (3.5-5.1)
[2021-03-15 06:05] LABS: ALBUMIN 2.3 gm/dl (3.1-4.5); CREATININE 1.65 mg/dL (0.55-1.02); TOTAL PROTEIN 5.9 gm/dL (6.4-8.2)
[2021-03-15 06:22] LABS: BASO % 0.1 % (0.0-1.0); HEMATOCRIT 33.1 % (37.0-47.0); LYMPH # 0.8 10*3/uL (1.3-4.4); LYMPH % 7.9 % (27.0-41.0); MEAN CELL VOLUME 94.8 fl (81.0-99.0); MEAN CORPUSCULAR HGB 29.8 pg (27.0-31.0); MEAN CORPUSCULAR HGB CONC 31.4 g/dl (33.0-37.0); MEAN PLATELET VOLUME 12.3 fl (9.6-12.3); MONO # 0.3 10*3/uL (0.1-1.0); MONO % 3.3 % (3.0-9.0); NEUT # 9.1 10*3/uL (2.3-7.9); NEUT % 87.8 % (47.0-73.0); PLATELET COUNT AUTOMATED 93 10*3/uL (130-400); RED BLOOD COUNT 3.49 10*6/uL (4.10-5.10); RED CELL DISTRI WIDTH 13.5 % (0-14.5); WHITE BLOOD COUNT 10.4 10*3/uL (4.8-10.8)
[2021-03-15 08:00] VITALS: BP 109/33
[2021-03-15 12:00] VITALS: BP 109/54
[2021-03-15 16:00] VITALS: BP 113/37
[2021-03-15 20:00] VITALS: BP 154/40
[2021-03-15 23:18] VITALS: BP 124/54
[2021-03-16 07:59] LABS: BASO % 0.1 % (0.0-1.0); HEMATOCRIT 32.6 % (37.0-47.0); LYMPH # 1.3 10*3/uL (1.3-4.4); LYMPH % 10.5 % (27.0-41.0); MEAN CELL VOLUME 95.9 fl (81.0-99.0); MEAN CORPUSCULAR HGB 29.7 pg (27.0-31.0); MEAN PLATELET VOLUME 12.3 fl (9.6-12.3); MONO # 0.7 10*3/uL (0.1-1.0); MONO % 5.3 % (3.0-9.0); NEUT # 10.2 10*3/uL (2.3-7.9); NEUT % 82.9 % (47.0-73.0); PLATELET COUNT AUTOMATED 110 10*3/uL (130-400); RED CELL DISTRI WIDTH 13.7 % (0-14.5); WHITE BLOOD COUNT 12.3 10*3/uL (4.8-10.8)
[2021-03-16 08:00] VITALS: BP 114/46
[2021-03-16 08:18] LABS: ALBUMIN 2.3 gm/dl (3.1-4.5); CREATININE 1.9 mg/dL (0.55-1.02); POTASSIUM 4.6 mmol/L (3.5-5.1); TOTAL PROTEIN 5.9 gm/dL (6.4-8.2)
[2021-03-16 12:00] VITALS: BP 129/51
[2021-03-16 16:00] VITALS: BP 120/50
[2021-03-16 20:00] VITALS: BP 128/49
[2021-03-17] VITALS: BP 153/47
[2021-03-17 03:06] LABS: BILIRUBIN Negative (Negative); BLOOD Negative (Negative); CLARITY Clear (Clear); COLOR Yellow (Yellow); GLUCOSE 3+ (Negative); KETONE Negative (Negative); LEUKO ESTERASE Negative (Negative); NITRITE Negative (Negative); SPECIFIC GRAVITY 1.025 (1.001-1.030); UROBILINOGEN 0.2 E.U./dl (0.0-1.0)
[2021-03-17 03:16] LABS: BACTERIA TRACE; EPITHELIAL CELLS 21-30; URINE CREATININE RANDOM 68.5 mg/dL; WBC 0-2 wbc/hpf (0-5)
[2021-03-17 06:08] LABS: CREATININE 1.83 mg/dL (0.55-1.02); POTASSIUM 4.8 mmol/L (3.5-5.1)
[2021-03-17 06:11] LABS: BASO % 0.1 % (0.0-1.0); LYMPH % 8.2 % (27.0-41.0); MEAN CELL VOLUME 96.2 fl (81.0-99.0); MEAN CORPUSCULAR HGB 29.7 pg (27.0-31.0); MEAN CORPUSCULAR HGB CONC 30.9 g/dl (33.0-37.0); MEAN PLATELET VOLUME 12.3 fl (9.6-12.3); MONO # 0.8 10*3/uL (0.1-1.0); MONO % 6.3 % (3.0-9.0); NEUT # 10.5 10*3/uL (2.3-7.9); NEUT % 84.1 % (47.0-73.0); PLATELET COUNT AUTOMATED 122 10*3/uL (130-400); RED BLOOD COUNT 3.43 10*6/uL (4.10-5.10); RED CELL DISTRI WIDTH 13.9 % (0-14.5); WHITE BLOOD COUNT 12.5 10*3/uL (4.8-10.8)
[2021-03-17 08:00] VITALS: BP 122/64
[2021-03-17 12:00] VITALS: BP 124/50
[2021-03-17 16:00] VITALS: BP 120/66
[2021-03-17 20:00] VITALS: BP 149/55
[2021-03-18] VITALS: BP 138/55
[2021-03-18 08:00] VITALS: BP 152/50
[2021-03-18 11:24] LABS: BASO % 0.1 % (0.0-1.0); HEMATOCRIT 33.2 % (37.0-47.0); LYMPH # 1.3 10*3/uL (1.3-4.4); LYMPH % 10.1 % (27.0-41.0); MEAN CORPUSCULAR HGB 29.8 pg (27.0-31.0); MEAN PLATELET VOLUME 11.6 fl (9.6-12.3); MONO # 1.1 10*3/uL (0.1-1.0); MONO % 9.2 % (3.0-9.0); NEUT # 9.9 10*3/uL (2.3-7.9); NEUT % 80.1 % (47.0-73.0); PLATELET COUNT AUTOMATED 132 10*3/uL (130-400); RED BLOOD COUNT 3.46 10*6/uL (4.10-5.10); RED CELL DISTRI WIDTH 14.1 % (0-14.5); WHITE BLOOD COUNT 12.3 10*3/uL (4.8-10.8)
[2021-03-18 11:37] LABS: ALBUMIN 2.4 gm/dl (3.1-4.5); CREATININE 1.35 mg/dL (0.55-1.02); POTASSIUM 3.7 mmol/L (3.5-5.1); TOTAL PROTEIN 6.1 gm/dL (6.4-8.2)
[2021-03-18 12:00] VITALS: BP 142/65
[2021-03-18 16:00] VITALS: BP 118/64; BP 156/65
[2021-03-18] MEDS ORDERED: DECADRON6 M1 PO (18:27)
[2021-03-19] MEDS ORDERED: TRULICITY1.5 MG/0.5 SC (12:55)
== END 2021-03-18 19:45 | disposition home or self-care (01) | DRG 177 ==
LOC: ED 05:08 → 4E 08:36 → EDHOLD 08:36 → 4E 08:42
PROVIDERS: Internal Medicine; Internal Medicine Nephrology; ADMIT Internal Medicine; ATTEND Internal Medicine
PROC: XW033E5 Introduction of Remdesivir Anti-infective into Peripheral Vein, Percutaneous Approach, New Technology Group 5 (ICD-10-PCS; principal; 2021-03-15)
DX: U07.1 COVID-19 (principal); J96.01 Acute respiratory failure with hypoxia; N17.9 Acute kidney failure, unspecified; B37.0 Candidal stomatitis; N18.30 Chronic kidney disease, stage 3 unspecified; I12.9 Hypertensive chronic kidney disease with stage 1 through stage 4 chronic kidney disease, or unspecified chronic kidney disease; E78.1 Pure hyperglyceridemia; F41.9 Anxiety disorder, unspecified; Z87.442 Personal history of urinary calculi; F43.10 Post-traumatic stress disorder, unspecified; R41.3 Other amnesia; E03.9 Hypothyroidism, unspecified; E55.9 Vitamin D deficiency, unspecified; E11.22 Type 2 diabetes mellitus with diabetic chronic kidney disease; E11.42 Type 2 diabetes mellitus with diabetic polyneuropathy; F32.9 Major depressive disorder, single episode, unspecified; E53.8 Deficiency of other specified B group vitamins; K21.9 Gastro-esophageal reflux disease without esophagitis; E11.65 Type 2 diabetes mellitus with hyperglycemia; Z91.81 History of falling; Z91.041 Radiographic dye allergy status; Z90.49 Acquired absence of other specified parts of digestive tract; Z90.710 Acquired absence of both cervix and uterus; Z83.3 Family history of diabetes mellitus; Z86.73 Personal history of transient ischemic attack (TIA), and cerebral infarction without residual deficits; Z79.82 Long term (current) use of aspirin; Z79.899 Other long term (current) drug therapy; Z79.4 Long term (current) use of insulin

== ENCOUNTER 2021-03-19 01:30 | Inpatient (IN) | payer MEDICARE, OTHER ==
[2021-03-19] VITALS (12 sets, daily range): BP systolic 100–202; BP diastolic 46–94
[~2021-03-19] VITALS: Ht 165.1 cm; Wt 84.6 kg
[~2021-03-19 01:30] MED LIST changes: +DECADRON6 M1 PO; +LEVOTHYROXINE100 MC1 PO; +NAPROXEN500 MG PO; +NEURONTIN300 MG PO; +TRAMADOL HCL50 MG PO; +VITAMIN D350 MCG PO
[2021-03-19 02:05] LABS: BASO % 0.1 % (0.0-1.0); HEMATOCRIT 34.5 % (37.0-47.0); LYMPH # 2.3 10*3/uL (1.3-4.4); LYMPH % 17.4 % (27.0-41.0); MEAN CELL VOLUME 93.2 fl (81.0-99.0); MEAN CORPUSCULAR HGB 29.5 pg (27.0-31.0); MEAN CORPUSCULAR HGB CONC 31.6 g/dl (33.0-37.0); MEAN PLATELET VOLUME 11.2 fl (9.6-12.3); MONO # 1.3 10*3/uL (0.1-1.0); MONO % 9.8 % (3.0-9.0); NEUT # 9.7 10*3/uL (2.3-7.9); NEUT % 72.1 % (47.0-73.0); PLATELET COUNT AUTOMATED 150 10*3/uL (130-400); RED CELL DISTRI WIDTH 13.8 % (0-14.5); WHITE BLOOD COUNT 13.4 10*3/uL (4.8-10.8)
[2021-03-19 02:21] LABS: ALBUMIN 2.7 gm/dl (3.1-4.5); CREATININE 1.29 mg/dL (0.55-1.02); TOTAL PROTEIN 6.5 gm/dL (6.4-8.2)
[2021-03-19 08:42] LABS: ACT PARTIAL THROMBO TIME 33.4 SECONDS (20.0-32.1); INTERNATIONAL NORM RATIO 1.1 (2.0-3.5)
[2021-03-19 08:48] LABS: TROPONIN I 0.043 ng/ml (<0.045)
[2021-03-19 09:06] LABS: ABG BASE EXCESS -4.6 mmol/L (-2.0-2.0); ARTERIAL BLOOD GAS PH 7.381 (7.35-7.45); ARTERIAL BLOOD GAS PO2 70.4 (80-90)
[2021-03-19] MEDS ORDERED: TRULICITY1.5 MG/0.5 SC (12:55)
[2021-03-20] VITALS: BP 158/63
[2021-03-20 08:00] VITALS: BP 130/77
[2021-03-20 12:06] VITALS: BP 150/42
[2021-03-20 16:00] VITALS: BP 135/53
[2021-03-20 20:00] VITALS: BP 150/44
[2021-03-21] VITALS: BP 117/47; BP 137/55
[2021-03-21 08:00] VITALS: BP 154/58
[2021-03-21 09:03] LABS: BASO % 0.1 % (0.0-1.0); EOS % 0.1 % (1.0-4.0); HEMATOCRIT 31.1 % (37.0-47.0); LYMPH # 1.3 10*3/uL (1.3-4.4); LYMPH % 12.6 % (27.0-41.0); MEAN CELL VOLUME 92.8 fl (81.0-99.0); MEAN CORPUSCULAR HGB 29.9 pg (27.0-31.0); MEAN CORPUSCULAR HGB CONC 32.2 g/dl (33.0-37.0); MEAN PLATELET VOLUME 11.4 fl (9.6-12.3); MONO # 0.8 10*3/uL (0.1-1.0); MONO % 7.4 % (3.0-9.0); NEUT # 8.3 10*3/uL (2.3-7.9); NEUT % 78.7 % (47.0-73.0); PLATELET COUNT AUTOMATED 157 10*3/uL (130-400); RED BLOOD COUNT 3.35 10*6/uL (4.10-5.10); WHITE BLOOD COUNT 10.6 10*3/uL (4.8-10.8)
[2021-03-21 09:33] LABS: ALBUMIN 2.1 gm/dl (3.1-4.5); CREATININE 1.56 mg/dL (0.55-1.02); POTASSIUM 3.6 mmol/L (3.5-5.1); TOTAL PROTEIN 6.3 gm/dL (6.4-8.2)
[2021-03-21 12:00] VITALS: BP 120/54
[2021-03-21 15:07] LABS: MYCOPLASMA PNEUMONIAE IGG <100 U/mL (0-99); MYCOPLASMA PNEUMONIAE IGM <770 U/mL (0-769)
[2021-03-21 15:44] VITALS: BP 153/48
[2021-03-21 20:00] VITALS: BP 125/72
[2021-03-22] VITALS: BP 102/84
[2021-03-22 08:00] VITALS: BP 148/48
[2021-03-22 12:00] VITALS: BP 140/50
[2021-03-22 14:24] LABS: EOS # 0.1 10*3/uL (0.0-0.4); EOS % 0.5 % (1.0-4.0); HEMATOCRIT 28.5 % (37.0-47.0); LYMPH # 0.9 10*3/uL (1.3-4.4); LYMPH % 7.5 % (27.0-41.0); MEAN CELL VOLUME 94.1 fl (81.0-99.0); MEAN CORPUSCULAR HGB CONC 31.9 g/dl (33.0-37.0); MEAN PLATELET VOLUME 11.2 fl (9.6-12.3); MONO # 0.5 10*3/uL (0.1-1.0); NEUT # 9.9 10*3/uL (2.3-7.9); NEUT % 87.2 % (47.0-73.0); PLATELET COUNT AUTOMATED 161 10*3/uL (130-400); RED BLOOD COUNT 3.03 10*6/uL (4.10-5.10); RED CELL DISTRI WIDTH 14.1 % (0-14.5); WHITE BLOOD COUNT 11.4 10*3/uL (4.8-10.8)
[2021-03-22 14:44] LABS: CREATININE 1.5 mg/dL (0.55-1.02); TOTAL PROTEIN 5.9 gm/dL (6.4-8.2)
[2021-03-22 16:00] VITALS: BP 151/60
[2021-03-22 20:00] VITALS: BP 110/70
[2021-03-23] VITALS: BP 149/55
[2021-03-23 08:00] VITALS: BP 154/67
[2021-03-23 12:00] VITALS: BP 116/50
[2021-03-23 16:00] VITALS: BP 148/48
[2021-03-23 20:00] VITALS: BP 146/53
[2021-03-24] VITALS: BP 100/77
[2021-03-24 06:33] LABS: BASO % 0.1 % (0.0-1.0); EOS # 0.4 10*3/uL (0.0-0.4); EOS % 3.2 % (1.0-4.0); HEMATOCRIT 29.2 % (37.0-47.0); LYMPH # 2.3 10*3/uL (1.3-4.4); MEAN CELL VOLUME 93.9 fl (81.0-99.0); MEAN CORPUSCULAR HGB 29.3 pg (27.0-31.0); MEAN CORPUSCULAR HGB CONC 31.2 g/dl (33.0-37.0); MEAN PLATELET VOLUME 10.7 fl (9.6-12.3); MONO # 0.9 10*3/uL (0.1-1.0); MONO % 7.9 % (3.0-9.0); NEUT # 8.1 10*3/uL (2.3-7.9); NEUT % 68.6 % (47.0-73.0); PLATELET COUNT AUTOMATED 173 10*3/uL (130-400); RED BLOOD COUNT 3.11 10*6/uL (4.10-5.10); RED CELL DISTRI WIDTH 13.7 % (0-14.5); WHITE BLOOD COUNT 11.8 10*3/uL (4.8-10.8)
[2021-03-24 07:04] LABS: CREATININE 1.3 mg/dL (0.55-1.02); TOTAL PROTEIN 5.9 gm/dL (6.4-8.2)
[2021-03-24 08:00] VITALS: BP 149/51
[2021-03-24 12:00] VITALS: BP 167/95
[2021-03-24 16:00] VITALS: BP 151/65
[2021-03-24 20:00] VITALS: BP 159/56
[2021-03-25] VITALS: BP 146/62
[2021-03-25 06:45] LABS: BASO % 0.1 % (0.0-1.0); EOS # 0.3 10*3/uL (0.0-0.4); EOS % 2.3 % (1.0-4.0); HEMATOCRIT 28.9 % (37.0-47.0); LYMPH # 2.5 10*3/uL (1.3-4.4); LYMPH % 19.6 % (27.0-41.0); MEAN CELL VOLUME 94.4 fl (81.0-99.0); MEAN CORPUSCULAR HGB 29.4 pg (27.0-31.0); MEAN CORPUSCULAR HGB CONC 31.1 g/dl (33.0-37.0); MEAN PLATELET VOLUME 10.5 fl (9.6-12.3); NEUT # 8.9 10*3/uL (2.3-7.9); NEUT % 68.8 % (47.0-73.0); PLATELET COUNT AUTOMATED 173 10*3/uL (130-400); RED BLOOD COUNT 3.06 10*6/uL (4.10-5.10); RED CELL DISTRI WIDTH 13.6 % (0-14.5); WHITE BLOOD COUNT 12.9 10*3/uL (4.8-10.8)
[2021-03-25 07:05] LABS: CREATININE 1.29 mg/dL (0.55-1.02); POTASSIUM 3.9 mmol/L (3.5-5.1)
[2021-03-25 08:00] VITALS: BP 146/61
[2021-03-25 12:00] VITALS: BP 122/87
[2021-03-25 16:00] VITALS: BP 144/43
[2021-03-25 20:00] VITALS: BP 182/53
[2021-03-26] VITALS: BP 157/60
[2021-03-26 08:00] VITALS: BP 131/58
[2021-03-26 12:00] VITALS: BP 108/42
[2021-03-26 13:22] LABS: BASO % 0.2 % (0.0-1.0); EOS # 0.2 10*3/uL (0.0-0.4); HEMATOCRIT 29.3 % (37.0-47.0); LYMPH % 5.7 % (27.0-41.0); MEAN CELL VOLUME 96.1 fl (81.0-99.0); MEAN CORPUSCULAR HGB 29.5 pg (27.0-31.0); MEAN CORPUSCULAR HGB CONC 30.7 g/dl (33.0-37.0); MEAN PLATELET VOLUME 11.3 fl (9.6-12.3); MONO # 0.7 10*3/uL (0.1-1.0); MONO % 3.9 % (3.0-9.0); NEUT # 15.3 10*3/uL (2.3-7.9); NEUT % 87.7 % (47.0-73.0); PLATELET COUNT AUTOMATED 186 10*3/uL (130-400); RED BLOOD COUNT 3.05 10*6/uL (4.10-5.10); RED CELL DISTRI WIDTH 13.9 % (0-14.5); WHITE BLOOD COUNT 17.4 10*3/uL (4.8-10.8)
[2021-03-26 13:28] LABS: ALBUMIN 2.2 gm/dl (3.1-4.5); CREATININE 1.65 mg/dL (0.55-1.02); POTASSIUM 4.7 mmol/L (3.5-5.1); TOTAL PROTEIN 6.4 gm/dL (6.4-8.2)
[2021-03-26 16:00] VITALS: BP 163/57
== END 2021-03-26 20:24 | DRG 871 ==
LOC: ED 01:30 → 4E 07:46 → EDHOLD 07:46 → 4E 13:01
PROVIDERS: Emergency Medicine; Internal Medicine; Internal Medicine Infectious Disease; Internal Medicine Nephrology; Podiatrist; Registered Nurse; ADMIT Internal Medicine; ATTEND Internal Medicine
PROC: 5A0935A Assistance with Respiratory Ventilation, Less than 24 Consecutive Hours, High Flow/Velocity Cannula (ICD-10-PCS; principal; 2021-03-19)
PROC: 5A0935A Assistance with Respiratory Ventilation, Less than 24 Consecutive Hours, High Flow/Velocity Cannula (ICD-10-PCS; 2021-03-20)
PROC: 5A0945A Assistance with Respiratory Ventilation, 24-96 Consecutive Hours, High Flow/Velocity Cannula (ICD-10-PCS; 2021-03-21)
DX: A41.89 Other specified sepsis (principal); U07.1 COVID-19; J96.01 Acute respiratory failure with hypoxia; J12.82 Pneumonia due to coronavirus disease 2019; N17.9 Acute kidney failure, unspecified; F33.9 Major depressive disorder, recurrent, unspecified; F43.10 Post-traumatic stress disorder, unspecified; F41.9 Anxiety disorder, unspecified; N18.30 Chronic kidney disease, stage 3 unspecified; E03.9 Hypothyroidism, unspecified; I95.1 Orthostatic hypotension; K21.9 Gastro-esophageal reflux disease without esophagitis; E11.22 Type 2 diabetes mellitus with diabetic chronic kidney disease; E55.9 Vitamin D deficiency, unspecified; I12.9 Hypertensive chronic kidney disease with stage 1 through stage 4 chronic kidney disease, or unspecified chronic kidney disease; E53.8 Deficiency of other specified B group vitamins; E11.649 Type 2 diabetes mellitus with hypoglycemia without coma; E11.42 Type 2 diabetes mellitus with diabetic polyneuropathy; K59.00 Constipation, unspecified; E78.1 Pure hyperglyceridemia; Z91.041 Radiographic dye allergy status; Z88.8 Allergy status to other drugs, medicaments and biological substances; Z87.442 Personal history of urinary calculi; Z90.710 Acquired absence of both cervix and uterus; Z90.49 Acquired absence of other specified parts of digestive tract; Z98.51 Tubal ligation status; Z83.3 Family history of diabetes mellitus; Z79.82 Long term (current) use of aspirin; Z79.899 Other long term (current) drug therapy

== ENCOUNTER 2021-05-12 13:47 | Emergency (ER) | payer MEDICARE, OTHER ==
[~2021-05-12] VITALS: Ht 157.4 cm; Wt 81.6 kg
[~2021-05-12 13:47] MED LIST changes: +AMLODIPINE BESYL5 MG PO; +TRULICITY1.5 MG/0.5 SC
[2021-05-12 14:07] VITALS: BP 158/64
[2021-05-12] MEDS ORDERED: ZOFRAN4 MG PO (15:27)
== END 2021-05-12 15:45 | disposition home or self-care (01) ==
LOC: ED 13:47
DX: S06.0X0A Concussion without loss of consciousness, initial encounter (principal); Z91.041 Radiographic dye allergy status; Z79.899 Other long term (current) drug therapy; W18.39XA Other fall on same level, initial encounter; Y93.89 Activity, other specified; Y92.89 Other specified places as the place of occurrence of the external cause; Y99.8 Other external cause status

== ENCOUNTER 2021-06-13 16:02 | Emergency (ER) | payer MEDICARE, OTHER ==
[~2021-06-13] VITALS: Wt 78.9 kg
[~2021-06-13 16:02] MED LIST changes: +ZOFRAN4 MG PO
[2021-06-13 16:12] VITALS: BP 169/61
[2021-06-13 16:48] LABS: BASO % 0.7 % (0.0-1.0); EOS # 0.1 10*3/uL (0.0-0.4); EOS % 2.2 % (1.0-4.0); HEMATOCRIT 35.4 % (37.0-47.0); LYMPH # 1.7 10*3/uL (1.3-4.4); LYMPH % 28.9 % (27.0-41.0); MEAN CELL VOLUME 90.1 fl (81.0-99.0); MEAN CORPUSCULAR HGB 29.3 pg (27.0-31.0); MEAN CORPUSCULAR HGB CONC 32.5 g/dl (33.0-37.0); MEAN PLATELET VOLUME 10.5 fl (9.6-12.3); MONO # 0.4 10*3/uL (0.1-1.0); MONO % 7.4 % (3.0-9.0); NEUT # 3.5 10*3/uL (2.3-7.9); NEUT % 60.6 % (47.0-73.0); PLATELET COUNT AUTOMATED 162 10*3/uL (130-400); RED BLOOD COUNT 3.93 10*6/uL (4.10-5.10); RED CELL DISTRI WIDTH 13.3 % (0-14.5); WHITE BLOOD COUNT 5.8 10*3/uL (4.8-10.8)
[2021-06-13 17:01] LABS: INTERNATIONAL NORM RATIO 1.1 (2.0-3.5)
[2021-06-13 17:08] LABS: CREATININE 1.32 mg/dL (0.55-1.02); POTASSIUM 5.2 mmol/L (3.5-5.1); TOTAL PROTEIN 6.6 gm/dL (6.4-8.2)
== END 2021-06-13 19:15 | disposition home or self-care (01) ==
LOC: ED 16:02
PROVIDERS: Physician Assistant
DX: M62.838 Other muscle spasm (principal)

== ENCOUNTER 2021-08-25 17:23 | Emergency (ER) | payer MEDICARE, OTHER ==
[~2021-08-25] VITALS: Wt 82.6 kg
[2021-08-25 17:30] VITALS: BP 150/90
[2021-08-25] MEDS ORDERED: HYDROCODONE-AC1 EAC1 PO (23:04)
[2021-08-27] MEDS ORDERED: ATORVASTATIN CA80 M1 PO (20:50)
== END 2021-08-25 23:25 | disposition home or self-care (01) ==
LOC: ED 17:23
DX: S52.501A Unspecified fracture of the lower end of right radius, initial encounter for closed fracture (principal); S52.601A Unspecified fracture of lower end of right ulna, initial encounter for closed fracture; S22.31XA Fracture of one rib, right side, initial encounter for closed fracture; Z91.041 Radiographic dye allergy status; Z79.899 Other long term (current) drug therapy; Z79.82 Long term (current) use of aspirin; Z98.890 Other specified postprocedural states; Z90.49 Acquired absence of other specified parts of digestive tract; Z90.710 Acquired absence of both cervix and uterus; W17.81XA Fall down embankment (hill), initial encounter; Y93.89 Activity, other specified; Y92.828 Other wilderness area as the place of occurrence of the external cause; Y99.8 Other external cause status

== ENCOUNTER 2021-09-09 07:58 | Inpatient (IN) | payer MEDICARE, OTHER ==
[~2021-09-09] VITALS: Ht 157.4 cm; Wt 83.5 kg
[~2021-09-09 07:58] MED LIST changes: +ATORVASTATIN CA80 M1 PO; +HYDROCODONE-AC1 EAC1 PO; +HYDROCODONE-AC1 EAC2 PO
[2021-09-09 08:12] VITALS: BP 190/63
[2021-09-09] MEDS ORDERED: JANUVIA100 MG PO (08:26)
[2021-09-09 09:19] LABS: BASO % 0.5 % (0.0-1.0); EOS # 0.3 10*3/uL (0.0-0.4); EOS % 3.4 % (1.0-4.0); HEMATOCRIT 33.9 % (37.0-47.0); LYMPH # 2.3 10*3/uL (1.3-4.4); LYMPH % 28.4 % (27.0-41.0); MEAN CELL VOLUME 89.9 fl (81.0-99.0); MEAN CORPUSCULAR HGB 28.1 pg (27.0-31.0); MEAN CORPUSCULAR HGB CONC 31.3 g/dl (33.0-37.0); MEAN PLATELET VOLUME 9.9 fl (9.6-12.3); MONO # 0.6 10*3/uL (0.1-1.0); MONO % 6.8 % (3.0-9.0); NEUT # 4.9 10*3/uL (2.3-7.9); NEUT % 60.2 % (47.0-73.0); PLATELET COUNT AUTOMATED 241 10*3/uL (130-400); RED BLOOD COUNT 3.77 10*6/uL (4.10-5.10); RED CELL DISTRI WIDTH 14.6 % (0-14.5); WHITE BLOOD COUNT 8.1 10*3/uL (4.8-10.8)
[2021-09-09 09:32] LABS: CREATININE 1.3 mg/dL (0.55-1.02); POTASSIUM 4.6 mmol/L (3.5-5.1)
[2021-09-09 11:37] VITALS: BP 145/52
[2021-09-09 14:25] VITALS: BP 167/62
[2021-09-09 15:41] LABS: BILIRUBIN Negative (Negative); BLOOD Negative (Negative); CLARITY Clear (Clear); COLOR Yellow (Yellow); GLUCOSE Negative (Negative); KETONE Negative (Negative); LEUKO ESTERASE Negative (Negative); NITRITE Negative (Negative); UROBILINOGEN 0.2 E.U./dl (0.0-1.0)
[2021-09-09 15:53] LABS: BACTERIA TRACE; WBC 0-2 wbc/hpf (0-5)
[2021-09-09 15:54] LABS: MUCOUS 1+
[2021-09-09 20:00] VITALS: BP 158/78
[2021-09-10] VITALS: BP 155/52
[2021-09-10] MEDS ORDERED: ATORVASTATIN CA80 M1 PO (00:10)
[2021-09-10] MEDS ORDERED: KLONOPIN2 M1 PO (00:10)
[2021-09-10] MEDS ORDERED: CLOPIDOGREL75 MG PO (00:11)
[2021-09-10] MEDS ORDERED: DULOXETINE HCL60 MG PO (00:12)
[2021-09-10 08:00] VITALS: BP 157/50
[2021-09-10 10:54] LABS: BASO # 0.1 10*3/uL (0.0-0.1); BASO % 0.7 % (0.0-1.0); EOS # 0.4 10*3/uL (0.0-0.4); EOS % 5.1 % (1.0-4.0); HEMATOCRIT 30.9 % (37.0-47.0); LYMPH % 23.7 % (27.0-41.0); MEAN CELL VOLUME 90.9 fl (81.0-99.0); MEAN CORPUSCULAR HGB 28.2 pg (27.0-31.0); MEAN CORPUSCULAR HGB CONC 31.1 g/dl (33.0-37.0); MONO # 0.6 10*3/uL (0.1-1.0); MONO % 7.1 % (3.0-9.0); NEUT # 5.3 10*3/uL (2.3-7.9); PLATELET COUNT AUTOMATED 202 10*3/uL (130-400); RED CELL DISTRI WIDTH 14.4 % (0-14.5); WHITE BLOOD COUNT 8.4 10*3/uL (4.8-10.8)
[2021-09-10 11:11] LABS: CREATININE 1.27 mg/dL (0.55-1.02); POTASSIUM 4.6 mmol/L (3.5-5.1)
[2021-09-10 12:20] VITALS: BP 167/48
[2021-09-10 16:00] VITALS: BP 182/56
[2021-09-10 20:00] VITALS: BP 169/51
[2021-09-11] VITALS: BP 180/65
[2021-09-11 08:00] VITALS: BP 174/82
[2021-09-11 12:00] VITALS: BP 149/66
[2021-09-11 16:00] VITALS: BP 155/59
[2021-09-11 20:00] VITALS: BP 188/68
[2021-09-12] VITALS: BP 144/82; BP 180/50
[2021-09-12 08:00] VITALS: BP 156/57
[2021-09-12 12:00] VITALS: BP 140/48
[2021-09-12] MEDS ORDERED: NYAMYC15 GM T (15:39)
[2021-09-12 16:00] VITALS: BP 145/51
[2021-09-12 20:05] VITALS: BP 146/44
[2021-09-13] VITALS: BP 159/62
[2021-09-13 08:00] VITALS: BP 157/57
[2021-09-13 12:00] VITALS: BP 168/53
[2021-09-13 14:48] LABS: BASO # 0.1 10*3/uL (0.0-0.1); BASO % 0.5 % (0.0-1.0); EOS # 0.5 10*3/uL (0.0-0.4); EOS % 5.2 % (1.0-4.0); HEMATOCRIT 31.7 % (37.0-47.0); LYMPH # 2.6 10*3/uL (1.3-4.4); LYMPH % 26.1 % (27.0-41.0); MEAN CELL VOLUME 93.8 fl (81.0-99.0); MEAN CORPUSCULAR HGB CONC 30.9 g/dl (33.0-37.0); MEAN PLATELET VOLUME 10.5 fl (9.6-12.3); MONO # 0.8 10*3/uL (0.1-1.0); MONO % 8.1 % (3.0-9.0); NEUT # 5.9 10*3/uL (2.3-7.9); NEUT % 59.9 % (47.0-73.0); PLATELET COUNT AUTOMATED 208 10*3/uL (130-400); RED BLOOD COUNT 3.38 10*6/uL (4.10-5.10); RED CELL DISTRI WIDTH 14.5 % (0-14.5); WHITE BLOOD COUNT 9.8 10*3/uL (4.8-10.8)
[2021-09-13 15:03] LABS: CREATININE 1.45 mg/dL (0.55-1.02); POTASSIUM 5.1 mmol/L (3.5-5.1)
[2021-09-13 16:00] VITALS: BP 142/32
== END 2021-09-13 18:08 | DRG 184 ==
LOC: ED 07:58 → 5E 13:33 → EDHOLD 13:33 → 5E 14:02
PROVIDERS: Emergency Medicine; Internal Medicine Nephrology; ADMIT Internal Medicine; ATTEND Internal Medicine
DX: S22.41XA Multiple fractures of ribs, right side, initial encounter for closed fracture (principal); T79.7XXA Traumatic subcutaneous emphysema, initial encounter; S62.101A Fracture of unspecified carpal bone, right wrist, initial encounter for closed fracture; N18.9 Chronic kidney disease, unspecified; S00.93XA Contusion of unspecified part of head, initial encounter; E11.22 Type 2 diabetes mellitus with diabetic chronic kidney disease; E11.649 Type 2 diabetes mellitus with hypoglycemia without coma; W19.XXXA Unspecified fall, initial encounter; E03.9 Hypothyroidism, unspecified; E78.2 Mixed hyperlipidemia; K21.9 Gastro-esophageal reflux disease without esophagitis; F32.A Depression, unspecified; E66.9 Obesity, unspecified; Y93.89 Activity, other specified; Y99.8 Other external cause status; Y92.129 Unspecified place in nursing home as the place of occurrence of the external cause; Z91.041 Radiographic dye allergy status; Z90.49 Acquired absence of other specified parts of digestive tract; Z90.710 Acquired absence of both cervix and uterus; Z83.3 Family history of diabetes mellitus; Z79.1 Long term (current) use of non-steroidal anti-inflammatories (NSAID); Z79.899 Other long term (current) drug therapy; Z68.33 Body mass index [BMI] 33.0-33.9, adult

== ENCOUNTER → 2021-09-18 | Outpatient (CLI) | payer MEDICARE, OTHER ==
[~2021-09-18] MED LIST changes: +CLOPIDOGREL75 MG PO; +JANUVIA100 MG PO; +NYAMYC15 GM T
== END | disposition home or self-care (01) ==
LOC: ORTHO 10:35
PROVIDERS: ATTEND Orthopaedic Surgery
DX: S52.611D Displaced fracture of right ulna styloid process, subsequent encounter for closed fracture with routine healing (principal); X58.XXXD Exposure to other specified factors, subsequent encounter

== ENCOUNTER → 2021-09-30 | Outpatient (CLI) | payer MEDICARE, OTHER | END | disposition home or self-care (01) | LOC: ORTHO 00:17 | PROVIDERS: ATTEND Orthopaedic Surgery | DX: S52.531D Colles' fracture of right radius, subsequent encounter for closed fracture with routine healing (principal); X58.XXXD Exposure to other specified factors, subsequent encounter ==

== ENCOUNTER → 2021-10-18 | Outpatient (CLI) | payer MEDICARE, OTHER | END | disposition home or self-care (01) | LOC: ORTHO 01:55 | PROVIDERS: ATTEND Orthopaedic Surgery | DX: M19.031 Primary osteoarthritis, right wrist (principal); S52.531D Colles' fracture of right radius, subsequent encounter for closed fracture with routine healing; X58.XXXD Exposure to other specified factors, subsequent encounter ==

== ENCOUNTER → 2021-11-29 | Outpatient (CLI) | payer MEDICARE, OTHER | END | disposition home or self-care (01) | LOC: ORTHO 00:14 | PROVIDERS: ATTEND Orthopaedic Surgery | DX: S52.531D Colles' fracture of right radius, subsequent encounter for closed fracture with routine healing (principal); X58.XXXD Exposure to other specified factors, subsequent encounter ==

== ENCOUNTER 2021-12-17 14:04 | Emergency (ER) | payer MEDICARE, OTHER ==
[~2021-12-17] VITALS: Wt 77.6 kg
[2021-12-17 14:24] VITALS: BP 179/83
[2021-12-17 15:50] LABS: BASO % 0.5 % (0.0-1.0); EOS % 0.1 % (1.0-4.0); HEMATOCRIT 40.7 % (37.0-47.0); LYMPH # 1.1 10*3/uL (1.3-4.4); LYMPH % 13.1 % (27.0-41.0); MEAN CELL VOLUME 87.2 fl (81.0-99.0); MEAN CORPUSCULAR HGB 28.5 pg (27.0-31.0); MEAN CORPUSCULAR HGB CONC 32.7 g/dl (33.0-37.0); MEAN PLATELET VOLUME 11.1 fl (9.6-12.3); MONO # 0.3 10*3/uL (0.1-1.0); MONO % 3.8 % (3.0-9.0); NEUT % 82.1 % (47.0-73.0); PLATELET COUNT AUTOMATED 188 10*3/uL (130-400); RED BLOOD COUNT 4.67 10*6/uL (4.10-5.10); RED CELL DISTRI WIDTH 13.9 % (0-14.5); WHITE BLOOD COUNT 8.5 10*3/uL (4.8-10.8)
[2021-12-17 16:09] LABS: CREATININE 2.04 mg/dL (0.55-1.02); TOTAL PROTEIN 7.5 gm/dL (6.4-8.2)
[2021-12-17] MEDS ORDERED: PEPCID20 MG PO (19:58)
== END 2021-12-17 20:15 | disposition home or self-care (01) ==
LOC: ED 14:04
PROVIDERS: Physician Assistant
DX: R10.13 Epigastric pain (principal); R11.0 Nausea; K21.9 Gastro-esophageal reflux disease without esophagitis; I10 Essential (primary) hypertension; E11.9 Type 2 diabetes mellitus without complications; Z91.041 Radiographic dye allergy status; Z79.899 Other long term (current) drug therapy; Z90.49 Acquired absence of other specified parts of digestive tract; Z90.710 Acquired absence of both cervix and uterus; Z98.51 Tubal ligation status

== ENCOUNTER 2021-12-23 16:44 | Inpatient (IN) | payer OTHER, MEDICARE ==
[~2021-12-23] VITALS: Ht 170.2 cm; Wt 74.1 kg
[~2021-12-23 16:44] MED LIST changes: +PEPCID20 MG PO
[2021-12-23 16:48] VITALS: BP 119/45
[2021-12-23 20:15] VITALS: BP 138/75
[2021-12-23] MEDS ORDERED: ASPIRIN81 M1 PO (20:19)
[2021-12-23] MEDS ORDERED: COREG12.5 M1 PO (20:20)
[2021-12-23] MEDS ORDERED: FUROSEMIDE40 MG PO (20:23)
[2021-12-23] MEDS ORDERED: JANUVIA25 MG PO (20:26)
[2021-12-23] MEDS ORDERED: PRILOSEC20 M1 PO (20:27)
[2021-12-23] MEDS ORDERED: POTASSIUM CHLO10 MEQ PO (20:28)
[2021-12-23] MEDS ORDERED: TRULICITY1.5 MG/0.5 SC (20:29)
[2021-12-23 20:49] VITALS: BP 108/44
[2021-12-24] VITALS: BP 136/44
[2021-12-24 08:00] VITALS: BP 125/87
[2021-12-24 12:00] VITALS: BP 91/41
[2021-12-24 13:29] LABS: CREATININE 2.89 mg/dL (0.55-1.02); POTASSIUM 4.4 mmol/L (3.5-5.1); TOTAL PROTEIN 6.2 gm/dL (6.4-8.2)
[2021-12-24 16:00] VITALS: BP 129/53
[2021-12-24 20:00] VITALS: BP 139/94
[2021-12-25] VITALS: BP 147/47
[2021-12-25 05:31] LABS: CREATININE 2.41 mg/dL (0.55-1.02); POTASSIUM 4.3 mmol/L (3.5-5.1)
[2021-12-25 08:00] VITALS: BP 109/57
[2021-12-25] MEDS ORDERED: KLONOPIN2 M1 PO (09:58)
[2021-12-25] MEDS ORDERED: HYDROCODONE-AC1 EAC2 PO (10:00)
[2021-12-25 12:00] VITALS: BP 94/61
[2021-12-25 16:00] VITALS: BP 129/40
== END 2021-12-25 19:44 | disposition hospice, home (50) | DRG 683 ==
LOC: ED 16:44 → EDHOLD 18:30 → 4E 18:30
PROVIDERS: ADMIT Internal Medicine; ATTEND Internal Medicine
DX: N17.0 Acute kidney failure with tubular necrosis (principal); F33.1 Major depressive disorder, recurrent, moderate; E86.0 Dehydration; I50.9 Heart failure, unspecified; E03.9 Hypothyroidism, unspecified; E78.2 Mixed hyperlipidemia; Z20.822 Contact with and (suspected) exposure to COVID-19; F41.1 Generalized anxiety disorder; Z51.5 Encounter for palliative care; Z91.041 Radiographic dye allergy status; Z87.442 Personal history of urinary calculi; Z90.49 Acquired absence of other specified parts of digestive tract; Z90.710 Acquired absence of both cervix and uterus; Z83.3 Family history of diabetes mellitus; Z81.1 Family history of alcohol abuse and dependence

== ENCOUNTER 2022-06-14 13:17 | Emergency (ER) | payer MEDICARE, OTHER ==
[~2022-06-14 13:17] MED LIST changes: +ASPIRIN81 M1 PO; +FUROSEMIDE40 MG PO; +JANUVIA25 MG PO; +POTASSIUM CHLO10 MEQ PO
[2022-06-14 13:20] VITALS: BP 193/65
[2022-06-14 14:21] LABS: BASO # 0.1 10*3/uL (0.0-0.1); BASO % 0.6 % (0.0-1.0); EOS # 0.3 10*3/uL (0.0-0.4); EOS % 2.8 % (1.0-4.0); HEMATOCRIT 34.4 % (37.0-47.0); LYMPH # 1.7 10*3/uL (1.3-4.4); LYMPH % 16.6 % (27.0-41.0); MEAN CELL VOLUME 91.5 fl (81.0-99.0); MEAN CORPUSCULAR HGB 29.3 pg (27.0-31.0); MEAN PLATELET VOLUME 10.1 fl (9.6-12.3); MONO # 0.6 10*3/uL (0.1-1.0); MONO % 5.6 % (3.0-9.0); NEUT # 7.4 10*3/uL (2.3-7.9); PLATELET COUNT AUTOMATED 226 10*3/uL (130-400); RED BLOOD COUNT 3.76 10*6/uL (4.10-5.10); RED CELL DISTRI WIDTH 13.3 % (0-14.5)
[2022-06-14 14:36] LABS: ACT PARTIAL THROMBO TIME 29.2 SECONDS (20.0-32.1)
[2022-06-14 14:38] LABS: CREATININE 2.26 mg/dL (0.55-1.02); POTASSIUM 5.6 mmol/L (3.4-5.1)
[2022-06-14 15:39] LABS: BILIRUBIN Negative (Negative); BLOOD 1+ (Negative); CLARITY Clear (Clear); COLOR Yellow (Yellow); GLUCOSE Trace (Negative); KETONE Negative (Negative); LEUKO ESTERASE Negative (Negative); NITRITE Negative (Negative); PH 5.5 (4.5-8.0); SPECIFIC GRAVITY 1.015 (1.001-1.030); UROBILINOGEN 0.2 E.U./dl (0.0-1.0)
== END 2022-06-14 19:42 ==
LOC: ED 13:17
PROVIDERS: Emergency Medicine
DX: M79.671 Pain in right foot (principal); R07.81 Pleurodynia; E87.5 Hyperkalemia; Z91.041 Radiographic dye allergy status; Z79.899 Other long term (current) drug therapy; Z79.82 Long term (current) use of aspirin; Z98.890 Other specified postprocedural states; Z90.49 Acquired absence of other specified parts of digestive tract; Z90.710 Acquired absence of both cervix and uterus; Z98.51 Tubal ligation status; W18.39XA Other fall on same level, initial encounter; Y93.89 Activity, other specified; Y92.89 Other specified places as the place of occurrence of the external cause; Y99.8 Other external cause status

== ENCOUNTER 2022-10-25 07:14 | Emergency (ER) | payer OTHER ==
[~2022-10-25] VITALS: Ht 157.4 cm; Wt 80.7 kg
[2022-10-25] MEDS ORDERED: LANTUS SOL100 UNIT/1 SQ (07:38)
[2022-10-25] MEDS ORDERED: HUMALOG100 UNIT/2 SC (07:39)
[2022-10-25] MEDS ORDERED: OCUVITE PO (07:40)
[2022-10-25] MEDS ORDERED: GLUCAGON EMERGEN1 M2 IJ (07:40)
[2022-10-25] MEDS ORDERED: [UNRECOGNIZED DRUG - OTHER] PO (07:40)
[2022-10-25] MEDS ORDERED: [UNRECOGNIZED DRUG - OTHER] PO (07:42)
[2022-10-25] MEDS ORDERED: NITROGLYCERIN0.4 MG SL (07:42)
[2022-10-25] MEDS ORDERED: BLINK TEARS15 ML OP (07:43)
[2022-10-25] MEDS ORDERED: CRANBERRY125 MG PO (07:45)
== END 2022-10-25 08:55 | disposition home or self-care (01) ==
LOC: ED 07:14
DX: S05.11XA Contusion of eyeball and orbital tissues, right eye, initial encounter (principal); S80.211A Abrasion, right knee, initial encounter; Z91.041 Radiographic dye allergy status; Z79.899 Other long term (current) drug therapy; Z79.82 Long term (current) use of aspirin; Z90.49 Acquired absence of other specified parts of digestive tract; Z90.710 Acquired absence of both cervix and uterus; Z98.890 Other specified postprocedural states; W18.39XA Other fall on same level, initial encounter; Y93.89 Activity, other specified; Y92.89 Other specified places as the place of occurrence of the external cause; Y99.8 Other external cause status

== ENCOUNTER 2022-12-28 00:42 | Emergency (ER) | payer OTHER ==
[~2022-12-28 00:42] MED LIST changes: +BLINK TEARS15 ML OP; +CRANBERRY125 MG PO; +GLUCAGON EMERGEN1 M2 IJ; +HUMALOG100 UNIT/2 SC; +LANTUS SOL100 UNIT/1 SQ; +NITROGLYCERIN0.4 MG SL; +OCUVITE PO; +[UNRECOGNIZED DRUG - OTHER] PO; +[UNRECOGNIZED DRUG - OTHER] PO
[2022-12-28 01:44] VITALS: BP 159/65
== END 2022-12-28 03:11 ==
LOC: ED 00:42
DX: S00.83XA Contusion of other part of head, initial encounter (principal); R51.9 Headache, unspecified; M54.50 Low back pain, unspecified; M54.2 Cervicalgia; I10 Essential (primary) hypertension; E11.9 Type 2 diabetes mellitus without complications; K21.9 Gastro-esophageal reflux disease without esophagitis; F32.A Depression, unspecified; Z87.442 Personal history of urinary calculi; F41.9 Anxiety disorder, unspecified; E03.9 Hypothyroidism, unspecified; Z91.041 Radiographic dye allergy status; Z90.49 Acquired absence of other specified parts of digestive tract; Z90.710 Acquired absence of both cervix and uterus; Z98.890 Other specified postprocedural states; Z98.51 Tubal ligation status; F10.10 Alcohol abuse, uncomplicated; W07.XXXA Fall from chair, initial encounter; Y93.89 Activity, other specified; Y92.129 Unspecified place in nursing home as the place of occurrence of the external cause; Y99.8 Other external cause status